=== PATIENT | female | born 1990 | race Caucasian/White ===

== ENCOUNTER 2024-01-01 03:48 | Inpatient (IN) ==
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
[2024-01-01] MEDS ORDERED: MoRPHine SULFATE PF 1 MG/ML 10 ML AMP/VIAL ONE (04:26)
[2024-01-01] MEDS ORDERED: OXYTOCIN 10 UNITS/ML VIAL ONE (04:26)
[2024-01-01] MEDS ORDERED: KETOROLAC 30 MG/ML VIAL ONE (04:26)
[2024-01-01] MEDS ORDERED: ONDANSETRON INJ 2 MG/ML 2 ML VIAL ONE (04:26)
[2024-01-01] MEDS ORDERED: fentaNYL citrate PF 100 MCG/2 ML VIAL ONE (04:27)
[2024-01-01] MEDS: LACTATED RINGER'S 1,000 ML IV SCH ×3 (04:30→08:48)
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
[2024-01-01] MEDS: CITRIC ACID/SODIUM CITRATE 15 ML UDC PO STA (04:45)
[2024-01-01 04:57] LABS: Basophils # (auto) 0.04 K/uL (0.00-0.20); Basophils % (auto) 0.4 %; Eosinophils # (auto) 0.05 K/uL (0.00-0.50); Eosinophils % (auto) 0.5 %; Hemoglobin 10.4 g/dl (12.0-16.0); Immature Granulocytes # (auto) 0.07 K/uL (0.01-0.20); Immature Granulocytes % (auto) 0.7 %; Lymphocytes # (auto) 1.84 K/uL (1.20-3.40); Lymphocytes % (auto) 17.9 %; Mean Corpuscular Hemoglobin 24.2 pg (25.0-34.0); Mean Corpuscular Hgb Conc 31.5 g/dL (32.0-36.0); Mean Corpuscular Volume 76.9 fL (80.0-100.0); Mean Platelet Volume 10.8 fL (9.4-12.4); Monocytes # (auto) 0.75 K/uL (0.11-0.59); Monocytes % (auto) 7.3 %; Neutrophils # (auto) 7.55 K/uL (1.40-6.50); Neutrophils % (auto) 73.2 %; Platelet Count 194 K/uL (130-400); RDW Coefficient of Variation 15.7 % (11.5-14.5); RDW Standard Deviation 43.3 fL (36.4-46.3); Red Blood Count 4.29 M/uL (4.20-5.40)
[2024-01-01 05:10] LABS: Alanine Aminotransferase 8 U/L (7-52); Albumin Globulin Ratio 1.3 (0.9-2); Albumin Level 3.6 gm/dl (3.4-5.0); Alkaline Phosphatase 121 U/L (34-104); Anion Gap 7 (3-11); Aspartate Aminotransferase 12 U/L (13-39); BUN Creatinine Ratio 10.3 (10-20); Bilirubin,Total 0.3 mg/dl (0.2-1.0); Blood Urea Nitrogen 6 mg/dl (6-23); Calcium 8.8 mg/dl (8.6-10.3); Carbon Dioxide 24 mmol/L (21-32); Chloride 104 mmol/L (98-107); Est GFR (African American) 141.4 ml/min; Globulin 2.7 gm/dl (2.5-4.0); Glucose 88 mg/dl (70-99(Fasting)); Sodium 135 mmol/L (136-145); Total Protein 6.3 gm/dl (6.0-8.3)
[2024-01-01 05:24] LABS: Amphetamines+Metham, Urine Neg (Neg); Barbiturates, Urine Neg (Neg); Benzodiazepine, Urine Neg (Neg); Cocaine, Urine Neg (Neg); MDMA (Ecstacy), Urine Neg (Neg); Marijuana, Urine Pos (Neg); Methadone, Urine Neg (Neg); Opiate, Urine Neg (Neg); Phencyclidine, Urine Neg (Neg)
[2024-01-01] MEDS: ceFAZolin 2000MG 2,000 MG/15 ML SYR IV STA (05:28)
[2024-01-01] MEDS: AZITHROMYCIN 500 MG in DEXTROSE 5% 250 ML IV STA (05:30)
[2024-01-01] MEDS ORDERED: MoRPHine SULFATE PF 1 MG/ML 10 ML AMP/VIAL INT SPINAL ONE (06:00)
[2024-01-01] MEDS ORDERED: NALOXONE HCL 0.4 MG/1 ML VIAL/CARP IV PRN (06:00)
[2024-01-01] MEDS ORDERED: SODIUM CHLORIDE 0.9% 1,000 ML IV SCH (06:00)
[2024-01-01] MEDS ORDERED: NALBUPHINE HCL 5 MG in SYRINGE 0 ML IV PRN (06:00)
[2024-01-01] MEDS ORDERED: ONDANSETRON INJ 2 MG/ML 2 ML VIAL IV PRN (06:00)
[2024-01-01] MEDS ORDERED: ePHEDrine sulfate 50 MG/ML AMP IV PRN (06:00)
[2024-01-01] MEDS ORDERED: NALOXONE HCL 1 MG in SODIUM CHLORIDE 0.9% 1,000 ML IV PRN (06:00)
[2024-01-01] MEDS ORDERED: HYDROmorphone INJ 0.5 MG/0.5 ML SYR IV PRN (06:00)
[2024-01-01] MEDS ORDERED: LACTATED RINGER'S 500 ML IV PRN (06:00)
[2024-01-01] MEDS ORDERED: NO NARCOTICS OR SEDATIVES SCH (06:00)
[2024-01-01] MEDS ORDERED: DC INTRASPINAL MORPHINE SCH (06:00)
[2024-01-01] MEDS ORDERED: NALOXONE HCL 0.08 MG in SYRINGE 1.8 ML IV PRN (06:00)
[2024-01-01] MEDS ORDERED: diphenhydrAMINE 50 MG/ML VIAL IV PRN ×2 (06:00→06:53)
[2024-01-01] MEDS ORDERED: BENZOCAINE 20% SPRY 85 APPLN/85 GM CAN EXT PRN (06:53)
[2024-01-01] MEDS ORDERED: KETOROLAC 30 MG/ML VIAL IV PRN (06:53)
[2024-01-01] MEDS ORDERED: MAGNESIUM HYDROXIDE SUSP 30 ML UDC PO PRN (06:53)
[2024-01-01] MEDS ORDERED: diphenhydrAMINE Capsule 25 MG CAP PO PRN (06:53)
[2024-01-01] MEDS ORDERED: SENNA 8.6 MG TAB PO PRN (06:53)
[2024-01-01] MEDS ORDERED: HYDROCORTISONE ACETATE 25 MG SUPP PR PRN (06:53)
[2024-01-01] MEDS ORDERED: MEPERIDINE HCL 50 MG/ML CARP IV PRN (06:53)
--- NOTE | 2024-01-01 07:02 | Operative Report ---
Post Operative Report Pre & Post Diagnosis Operation Date: 01/01/24 04:45 Pre-Op Diagnosis: Footling breech presentation. Spontaneous rupture of membranes, in early labor, h/o prior C Section. Post-Op Diagnosis: Footling breech presentation. Spontaneous rupture of membranes, in early labor, h/o prior C Section . I identified the patient and participated in the time-out.: Yes Procedure Operation Date: 01/01/24 04:45 Actual Procedures p Repeat low-transverse Section in for live female child at 0558. - Al Ward MD Surgeon Al Ward MD All Around Presser Nichelle Dunaway RN Estimated Blood Loss 500 Findings Consistent with Post-Op Diagnosis Baby was a viable female delivered at 0 5:58 AM in footling breech presentation, Apgars 8/8, weight is 2920 g. Maternal findings, lower uterine segment was thin but intact, there were some adhesions between the omentum and the fundus of the uterus, normal fallopian tubes and ovaries. Specimens Placenta Drains Spaulding catheter drained 100 mL of clear urine Anesthesia Type Spinal Complications none Indications Patient is a 33-year-old -0-1-2 at 39 weeks and 1 day gestation presenting with spontaneous rupture of membranes, in early labor, footling breech presentation, history of prior . Description of Procedure Patient was taken to operating room where a spinal anesthesia was given without difficulty. She was placed in dorsal supine position with a leftward tilt. She was prepared and draped in usual sterile fashion. A financial skin incision was made and carried through to the underlying layer of fascia with the Bovie. Fascia was incised in the midline and incision was extended laterally with the help of Helton scissors. Then the upper aspect of the fascial incision was grasped with 2 Ana Maria clamps elevated the underlying rectus muscles were dissected off sharply with Helton scissors. Same thing was done on the lower incision. Then the muscles were in the midline, peritoneum was identified grasped with 2 pickups and entered sharply with Metzenbaum scissors. Peritoneal incision was extended superior and inferiorly with good visualization of the bladder. The bladder blade was inserted. Vesicouterine peritoneum was identified, grasped with pickups and entered sharply with Metzenbaum scissors, bladder flap was created digitally and bladder blade was reinserted. Uterus was incised in transverse fashion, incision was extended laterally with our appendage scissors, membranes were ruptured and clear fluid was obtained. Baby's buttocks with negative fluid were delivered down difficulty, followed by legs and arms in flexion position and then head without faculty. Mouth and nose were suctioned there was dried on the field he was vigorously crying and moving. The cord was clamped times and cut at 1 minute delay and then the was handed off to the pediatric team. Then the placenta was delivered manually as intact and complete. We were unable to externalize the uterus due to effusions of omentum over the uterine fundus and superior serosa. Uterus was kept inside of the pelvis. It was cleared of all clots and debris. Uterine incision was repaired with 0 Vicryl in a running locked fashion, second umbricating layer was placed with the same suture in running locked fashion. Excellent hemostasis achieved. Both fallopian tubes and ovaries were checked to be normal. The pelvis was irrigated with warm normal saline and suctioned. Incision was checked of anesthetic again. parietal peritoneum was reapproximated with 3-0 Vicryl in a running fashion and the muscles were reapproximated in the same suture in a running fashion. All of the fascia and rectus muscles were hemostatic. Rectus fascia was reappro ximated with 0 Vicryl starting from both corners meeting in the midline. Subcuticular fat tissue was brought together with 2-0 Vicryl in a running fashion, skin was closed with 4-0 Monocryl in a subcuticular cuticular fashion. The mom and baby tolerated procedure well. Sponge needle instrument count was correct x3. No complications happened, I was present during whole procedure. She was given 2 g of cefazolin and 500 mg of azithromycin before surgery. My commissary assistant was needed for retraction, hemostasis and aid during delivery of I attest to the content of the Intraoperative Record and any orders documented therein. Any exceptions are noted below.
--- NOTE | 2024-01-01 07:08 | Anesthesiology Progress Note ---
Date of Service January 01, 2024 Anesthesia Post Procedure Vital Signs Vital Signs: Temp Pulse Resp BP Pulse Ox 01/01/24 07:05 72 104/77 100 01/01/24 05:04 37.0 C 18 01/01/24 04:07 77 132/89 Transfer of Care Handoff Completed per policy Notes Mental Status: alert / awake / arousable Patient Amnestic to Procedure: Yes Nausea / Vomiting: adequately controlled Pain: adequately controlled Airway Patency, RR, SpO2: stable & adequate BP & HR: stable & adequate Hydration State: stable & adequate Neuraxial Anesthesia: was administered and sensory block is resolving Anesthetic Complications: no major complications apparent and Pt Satisfied with anesthetic care
[2024-01-01] MEDS: MEASLES, MUMPS & RUBELLA VIRUS VACCINE (MMR) VIAL SQ ONE (08:48)
[2024-01-01] MEDS: DIPHTHER/TETAN/PERTUS Vaccine (Tdap, Adol/Adult) 0.5mL IM ONE (08:48)
[2024-01-01] MEDS: ONDANSETRON INJ 2 MG/ML 2 ML VIAL IV PRN (08:51)
[2024-01-01] MEDS: OXYTOCIN 20 UNITS/LR 1,002 ML IV SCH (08:51)
[2024-01-01] MEDS: DOCUSATE SODIUM 100 MG CAP PO SCH (09:25)
[2024-01-01] MEDS: ESCITALOPRAM OXALATE 10 MG TAB PO SCH ×2 (09:26→19:35)
[2024-01-01] MEDS: FERROUS SULFATE 325 MG TAB PO SCH (09:26)
[2024-01-01] MEDS: PRENATAL VITAMIN 1 TAB PO SCH (09:26)
[2024-01-01] MEDS: SIMETHICONE 80 MG CHEW PO SCH (09:27)
[2024-01-01] MEDS ORDERED: Nursing to Pharmacy Communication SCH (09:30)
[2024-01-01] MEDS: PROMETHAZINE HCL 25 MG in SODIUM CHLORIDE 0.9% 50 ML IV PRN (09:39)
--- OUTSIDE RECORDS SUMMARY | 2024-01-01 13:33 | External Medical Summary | Summary of Care ---
Author Name Unknown Organization [facility] Address [address] [address] Phone [phone] Care Team Providers Care Sleeve Setter Name Role Phone Unavailable Primary Care Provider Unavailabl e Reason for Visit * Reason Comments Return Visit Encounter Details Date Type Department Care Team (Late st Contact Info) Description 12/22/2023 8:00 AM EST Office Visit Gynecology/Obstetric s [facility] [address] [place] [address] Aggie Alvarenga CRNP [address] [place] [address] History of section*; Supervision of other normal , antepartum; Rh negative status during in third trimester; Bipolar disease during in third trimester ([facility]) Allergies No known active allergiesdocumented as of this encounter (statuses as of 12/22/2023) Medications Medication Sig Dispensed Refills Start Date End Date Status Complete Oral Capsule Therapy Pack Take by mouth. 0 Active Ventolin HFA 108 (90 Base) MCG/ACT Inhalation Aerosol SolutionIndications:W heezing,Chronic cough Inhale 2 Puffs by mouth every 4 hours as needed for Wheezing. 8 g 5 09/16/2023 Active Ondansetron HCl 4 MG Oral Tablet (Zofran) Take 1 Tablet by mouth every 8 hours as needed for Nausea. 20 Tablet 1 09/24/2023 Active Iron-Vitamin C 65-125 MG Oral Tablet (Vitron C) Take 1 Tablet by mouth in the morning. 100 Tablet 1 10/20/2023 Active Lurasidone HCl 40 MG Oral Tablet (Latuda) Take 1 Tablet by mouth every night at bedtime. 30 Tablet 2 11/18/2023 Active Escitalopram Oxalate 10 MG Oral Tablet (Lexapro) Take 1 Tablet by mouth in the morning. 90 Tablet 1 11/19/2023 Active documented as of this encounter (statuses as of 12/22/2023) Active Problems Problem Noted Date Diagnosed Date Malpresentation of fetus 12/21/2023 Bipolar disease during 09/18/2023 Overview: Jeyson Jurado Supervision of other normal , antepartu m 09/02/2023 Overview: Transferring care at 21w6d. Records are in chart Rh negative status during 09/02/2023 Overview: Rhogam candidate Electronic cigarette use 09/30/2021 Hyperprolactinemia 04/09/2021 Medical marijuana use 11/20/2020 Borderline personality disorder 11/19/2020 PTSD (post-traumatic stress disorder) 11/19/2020 Bipolar disorder, in full re mission, most recent episode depressed 11/19/2020 History of section 12/23/2018 Trivial aortic regurgitation 09/26/2011 Estimated Date of Delivery Comme nts Yes 01/07/2024 Based on Ultraso und documented as of this encounter (statuses as of 12/22/2023) Resolved Problems Problem Noted Date Diagnosed Date Resolved Date Presence of intrauterine con traceptive device (IUD) 06/24/2017 11/19/2020 documented as of this encounter (statuses as of 12/22/2023) Immunizations Name Administration Dates Next Due DTaP Dipth/Tet/Acell Pertussis (Infanrix), Peds 02/23/1997,02/07/1993,05/02/1992,02/28,1991 HIB PRP-T, 4 dose (ActHib) 02/07/1993,,02/29/1992,12/28 Hepatitis B, 0-19 yrs 09/07/1997,05/04/1997,04/1 MMR - Measles/Mumps/Rubella Vaccine 02/23/1997,0 02/07/1993 Meningococcal Conjugate Vacc ine (Menactra/Menveo) 07/15/2011 OPV - Polio Virus Vaccine (Oral) 997,02/07/1993,02/29/1992,12/28 PPD 07/15/2011 Seasonal Influenza, Quadriva lent, No Preserve, IM 08/25/2016 Seasonal Influenza, Split, I IV3, With Preserve, Inj 11/26/2017,08/23/2014 TB Sophy Test 02/07/1993 TDAP (age 10 and older)(Boostrix) 10/19/2023 TDAP (age 11 and older)(Adacel) 07/15/2011 documented as of this encounter Social History Tobacco Use Types Packs/Day Years Used Date Smoking Tobacco: Former Smokeless Tobacco: Never Comments:quit 5 mos ago as o f 07/30/22 Alcohol Use Standard Drinks/Week Comments Not Currently 0 (1 standard drink = 0.6 oz pur e alcohol) PHQ-2 Answer Date Recorded PHQ Adult Total Score 10 11/20/2020 Hunger Vital Sign Answer Date Recorded Within the past 12 months, y ou worried that your food would run out before you got the money to buy more. Patient refused Within the past 12 months, t he food you bought just didn't last and you didn't have money to get more. Patient refused [place] Depression Scale Answer Date Recorded [place] Depression Scale Total 12 12/02/2023 The thought of harming myself has occurred to me . Never 12/02/2023 Estimated Date of Delivery Comme nts Yes 01/07/2024 Based on Ultraso und Sex and Gender Information Value Date Recorded Sex Assigned at Female 03/16/2023 9:02 PM EDT Gender Identity Female 03/16/2023 9:02 PM EDT Sexual Orientation Straight 03/16/2023 9: 02 PM EDT Job Start Date Occupation Industry Not on file Not on file Not on file documented as of this encounter Last Filed Vital Signs Vital Sign Reading Time Taken Comments Blood Pressure 118/86 12/22/2023 8:07 AM EST Pulse - - Temperature - - Respiratory Rate - - Oxygen Saturation - - Inhaled Oxygen Concentration - - Weight 81.2 kg (179 lb) 12/22/2023 8:07 AM EST Height 165.1 cm (5' 5") 12/22/2023 8:07 AM EST Body Mass Index 29.79 12/22/2023 8:07 AM EST documented in this encounter Progress Notes * Aggie Alvarenga CRNP - 12/22/2023 8:20 AM EST 37w5d Failed ECV at [facility] yesterday. Feeling sore today, having some irregular contractions. Baby is moving well. Denies bleeding or LOF. Agreeable to schedule c/s, Amalia to call pt with appt date for preop as well as c/s date. EMMA Rothman documented in this encounter Plan of Treatment Upcoming Encounters Date Type Department Care Team (Late st Contact Info) Description 12/28/2023 8:30 AM EST Office Visit Gynecology/Obstetrics [facility] [address] [place] [address] Federica Delgadillo CRNP [address] [place] [address] 01/05/2024 8:00 AM EST Office Visit Gynecology/Obstetrics [facility] [address] [place] [address] Aggie Alvarenga CRNP [address] [place] [address] 01/18/2024 8:30 AM EST Telemedicine Psychiatry, [place] [address], [place] [id number] Porsche Markham CRNP [address] [place] [address] Health Maintenance Due Date Last Done Comments COVID-19 Vaccine (#1) 04/27/1992 Depression, Most Recent Score >= 10 (will fire each visit until score < 10) 11/21/2020 11/20/2020 HPV/Co-Test 2021 Influenza Vaccine (FLU shot) (#1) 2023 11/26/2017, 08/25/2016, 08/23/2014 Cervical Cancer Screening 09/16/2025 Pap Smear 09/16/2025 09/16/2022, 06/24/2017 DTaP,Tdap,and Td Vaccines (8 - Td or Tdap) 10/19/2033 10/19/2023, 07/15/2011, 02/23/1997, Additional history exists MENINGOCOCCAL (MENACTRA/MENVEO) Aged Out 07/15/2011 No longer eligible based on patient's age to complete this topic GARDASIL-HPV IMMUNIZATION SERIES Aged Out No longer eligible based on patient's age to complete this topic Pneumococcal Vaccine: Pediatrics (0 to 5 Years) and At-Risk Patients (6 to 64 Years) Aged Out No longer eligible based on patient's age to complete this topic documented as of this encounter Medical Devices Not on filedocumented as of this encounter Visit Diagnoses Diagnosis History of section- Primary Other postprocedural status Supervision of other normal , antepartum Rh negative status during in third trimester Bipolar disease during in third trimester ([facility]) documented in this encounter Advance Directives Latest Code Status on File Code Status Date Activated Date Inactivated Comments Full Code 12/21/2023 7:55 AM 12/21/2023 8:58 PM This or kelly reflects the patients wishes and were consensually agreed upon. Question Answer Comments Discussion of Advance Directives occurred with: Not Discussed due to patient's condition
--- OUTSIDE RECORDS SUMMARY | 2024-01-01 13:33 | External Medical Summary | Summary of Care ---
Author Name Unknown Organization [facility] Address [address] [address] Phone [phone] Care Team Providers Care Cable Layer Name Role Phone Unavailable Primary Care Provider Unavailabl e Reason for Visit * Reason Comments Return Visit Encounter Details Date Type Department Care Team (Late st Contact Info) Description 12/29/2023 3:15 PM EST Office Visit Gynecology/Obstetric s [facility] [address] [place] [address] Mike Gee MD [address] [place] [address] History of section*; Supervision of other normal , antepartum; Rh negative status during in third trimester; Bipolar disease during in third trimester ([facility]) Allergies No known active allergiesdocumented as of this encounter (statuses as of 12/29/2023) Medications Medication Sig Dispensed Refills Start Date [...] as of this encounter (statuses as of 12/29/2023) Active Problems Problem Noted Date Diagnosed Date [...] as of this encounter (statuses as of 12/29/2023) Resolved Problems Problem Noted Date Diagnosed Date Resolved Date Presence of intrauterine con traceptive device (IUD) 06/24/2017 11/19/2020 documented as of this encounter (statuses as of 12/29/2023) Immunizations Name Administration Dates Next Due DTaP Dipth/Tet/Acell Pertussis (Infanrix), Peds 02/23/1997,02/07/1993,05/02/1992,02/28,1991 HIB PRP-T, 4 dose (ActHib) 02/07/1993,,02/29/1992,12/28 Hepatitis B, 0-19 yrs 09/07/1997,05/04/1997,04/ MMR - Measles/Mumps/Rubella Vaccine 02/23/1997,0 02/07/1993 Meningococcal [...] have money to get more. Patient refused [place] Depression Scale Answer Date Recorded [place] Depression Scale Total 12 12/02/2023 The thought [...] Sign Reading Time Taken Comments Blood Pressure 120/74 12/29/2023 3:01 PM EST Pulse - - Temperature - - Respiratory Rate - - Oxygen Saturation - - Inhaled Oxygen Concentration - - Weight 81.6 kg (180 lb) 12/29/2023 3:01 PM EST Height 165.1 cm (5' 5") 12/29/2023 3:01 PM EST Body Mass Index 29.95 12/29/2023 3:01 PM EST documented in this encounter Progress Notes * Mike Gee MD - 12/29/2023 3:06 PM EST Pt doing well No complaints RTC 1 week * Yari Rob LPN - 12/29/2023 3:01 PM EST 38w5d documented in this encounter Plan of Treatment Upcoming Encounters Date Type Department Care Team (Late st Contact Info) Description 01/05/2024 8:00 AM EST Office Visit [facility]necology[facility]st[facility] [address] [facility] [address] Aggie Alvarenga CRNP [address] [place] [address] 01/13/2024 1:30 PM EST Office Visit Gynecology/Obstetrics [facility] [address] [facility] [place] [address] Aggie Alvarenga CRNP [address] [place] [address] 01/18/2024 8:30 AM EST Telemedicine Psychiatry, [place] [address], [place] [phone] Porsche Markham CRNP [address] [place] [address] Health Maintenance Due Date Last [...] trimester Bipolar disease during in third trimester ([facility]) documented in this encounter Advance Directives Latest Code Status on File Code Status Date Activated Date Inactivated Comments Full Code 12/21/2023 7:55 AM 12/21/2023 8:58 PM This or kelly reflects the patients wishes and were consensually agreed upon. Question Answer Comments Discussion of Advance Directives occurred with: Not Discussed due to patient's condition
--- OUTSIDE RECORDS SUMMARY | 2024-01-01 13:34 | External Medical Summary ---
Author Name Unknown Address Unknown Organization K01:[facility] [address] [place] [address] Laboratory Report Ordering Provider Test Date Status YO RONDON 12/21/2023 08:23:31 Final Observation Date Value Abnormality Reference (Units ) Status SYNC LEUKOCYTES IN BLOOD BY AUTOMATED COUNT 12/21/2023 08:23:31 9.17 4.00-10.80 (K/uL) Final Segs 12/21/2023 08:23:31 73.6 40.0-75.0 (%) Final Lymphs % 12/21/2023 08:23:31 17.2 Below low normal 18.0-42.0 (%) Final Monos 12/21/2023 08:23:31 6.8 1.0-11.0 (%) Final Eosinophils 12/21/2023 08:23:31 1.3 0.0-6.0 (%) Final Basos 12/21/2023 08:23:31 0.2 0.0-2.0 (%) Final Immature Granulocyte, Percent 12/21/2023 08:23:31 0.9 0.0-2.0 (%) Final Absolute Segs 12/21/2023 08:23:31 6.75 1.80-7.70 (K/uL) Final Lymphs, absolute 12/21/2023 08:23:31 1.58 1.00-4.80 (K/ul) Final Monos, Abs 12/21/2023 08:23:31 0.62 0.00-1.10 (K/uL) Final Eos, Abs 12/21/2023 08:23:31 0.12 0.00-0.70 (K/uL) Final Basos, Abs 12/21/2023 08:23:31 0.02 0.00-0.20 (K/uL) Final Immature Granulocytes, Number 12/21/2023 08:23:31 0.08 0.00-0.20 (K/uL) Final Performing Location [facility] [address] [facility] [address]
--- OUTSIDE RECORDS SUMMARY | 2024-01-01 13:34 | External Medical Summary | Summary of Care ---
Author Name Unknown Organization [facility] Address [address] [place] [address] Phone [phone] Care Team Providers Care Cashier Host/Hostess Name Role Phone Unavailable Primary Care Provider Unavailabl e Reason for Visit * Auth/Cert Specialty Diagnoses / Procedures Referred By Sobia jon Referred To Contact Diagnoses 37 weeks gestation of 37 weeks gestation of [Z3A.37] Procedures ANTEPARTUM MANIPULATION EXTERNAL CEPHALIC VERSION WITH OR WITHOUT TOCOLYSIS Referral ID Status Reason Start Date Expiration Date Visits Re quested Visits Authorized [id number] Encounter Details Date Type Department Care Team (Latest Contact Info) Description 12/21/2023 7:50 AM EST - 12/21/2023 4:58 PM EST Hospital Encounter [id number] [facility], Women's Lower Level 1st Floor [address] [place] [address] LaniKayla, [address], [place] [id number] Discharge Disposition: Home - Self Care Allergies No known active allergiesdocumented as of [...] dose (ActHib) 02/07/1993,,02/29/1992,12/28 Hepatitis B, 0-19 yrs 09/07/1997,05/04/1997,02/14 MMR - Measles/Mumps/Rubella Vaccine 02/23/1997,0 02/07/1993 Meningococcal [...] have money to get more. Patient refused [place] Depression Scale Answer Date Recorded [place] Depression Scale Total 12 12/02/2023 The thought [...] Sign Reading Time Taken Comments Blood Pressure 115/66 12/21/2023 2:00 PM EST Pulse 78 12/21/2023 2:00 PM EST Temperature 36.2 C (97.2 F) 12/21/2023 2:00 PM ES T Respiratory Rate 16 12/21/2023 2:00 PM EST Oxygen Saturation 97% 12/21/2023 2:00 PM EST Inhaled Oxygen Concentration - - Weight - - Height - - Body Mass Index - - documented in this encounter Discharge Instructions * Discharge Instr - AVS* Homa Bahena, DO - 12/21/2023 4:01 PM EST Discharge Date: 12/21/2023 You may call the department of Obstetrics and Gynecology during business hours for any questions ortest results. [facility] - [phone] After hours, you may call the number above and follow the prompts for more information on the next steps in your care. For acute concerns, you may also call the hospital directly and have the tracer lathe set up operator page the [employer] physician financial sales professional. The information below provides you with the instructions and the list of medications you need to betaking following discharge from the hospital. If you have any questions, please ask before leaving.Please carry this letter with you when you see your doctor in the clinic. If you have questions, you can reach us at the numbers above. Chief Complaint You came to triage for external cephalic version Diagnosis Your primary diagnosis at discharge was unsuccessful ECV at 37w4d gestation Treatment Your treatment included attempted external cephalic version Diet Normal diet Activity As tolerated Return to Work or School You may return to work or school tomorrow. Return Precautions Return to triage if you have painful contractions (greater than 6 to 8 per hour), severe abdominal pain, vaginal bleeding, leaking of fluid, or decreased movement (fewer than 10 movements in a 2 hour period). Special Instructions Vaginal Bleeding Bleeding in the 2nd and 3rd trimesters can be caused by several things. Not all bleeding in is cause for alarm, but in almost all cases, vaginal bleeding in requires evaluation bya provider in the clinic or hospital setting. If you experience any bright red, vaginal bleeding that is like a period, please call [phone] at any time. During day-time work hours, You will be connected directly with a nurse or provider whocan help determine if you need to be evaluated. After hours you can call the number and follow the prompts or press 0 to be connected to the tracer lathe set up operator and ask to speak with the OBGYN physician financial sales professional. Things that may cause bleeding include: Infection of the vagina or cervix - Certain sexually transmitted infections or a bad yeast infection can cause a small amount of spotting. If you suspect you are at risk for one of these conditions, you should call your provider to be tested and treated. Untreated infections can cause pre-term labor or pre-mature rupture of membranes. Pelvic exams, intercourse, or trans-vaginal ultrasound - During , the tissues within the vagina and cervix are very vascular and sensitive. A small amount of spotting after intercourse, cervical exams, or speculum exams is considered normal. You should contact your OB if you experience anybleeding that fills a pad, like a period, as it should be evaluated by a provider. Cervical dilation - As you reach the end of your , your cervix may start to slowly dilate,even in the absence of consistent contractions. This can cause a small amount of blood tinged, mucous discharge, aka bloody show. This is expected and normal, but if this occurs in the presenceof consistent and painful contractions, or if it occurs when you are , you should call your provider to determine if you need to be evaluated. Subchorionic hemorrhage - Some women have a small bleed behind the placenta early in . This is generally monitored without intervention, but it can cause some residual red-brown vaginal discharge. Please speak to your OB if you have a concern regarding your bleeding. Placental abruption - This is when part, or all, of the placenta separates from the uterine wall. This can happen suddenly (acute), or slowly over time (chronic). Warning signs include vaginal bleeding, decreased movement, contractions, and sudden persistent abdominal pain. Risk factors for abruption include: Smoking Severe hypertension Illicit drug use (cocaine, methamphetamines) Direct abdominal trauma A small or chronic abruption can sometimes be managed in the outpatient setting, but an acute abruption requires immediate medical evaluation. If you are having painful abdominal cramping, with or without vaginal bleeding, please contact your doctor to determine if you need to be evaluated. Placenta previa or vasa previa - This is a condition where the placenta or the umbilical cord are overlying the opening to the cervix. This will generally be seen at your anatomy ultrasound (18-22weeks). If diagnosed with a placenta previa or vasa previa, you will be followed closely with ultrasounds to see if the condition resolves. Prior to undergoing speculum exams, digital pelvic exams, or trans-vaginal ultrasound, be sure your provider is aware of your diagnosis. If you have a previa, do not put anything in the vagina including intercourse, douching, tampons, etc. Please call your provider and be seen at the hospital as soon as possible if you experience vaginal bleeding. This information is not intended to replace advice given to you by your health care provider. Make sure you discuss any questions you have with your health care provider. documented in this encounter H&P Notes * Homa Bahena DO - 12/21/2023 9:21 AM EST Obstetrics - History & Physical CHIEF COMPLAINT: here for ECV HISTORY OF PRESENT ILLNESS Winnie Schwab is a 33 year old at 37w4d gestational age by LMP (04/02/23) and consistent with first trimester US (performed 06/01/23 at 8w4d) which suggests Estimated Date of Delivery: 01/07/24. Patient presents today for her ECV. Fetus remains in breech presentation. Patient LOF, VB, contractions, reports good FM. Patient denies any change in vaginal discharge, dysuria, CP/SOB, palpitations, headaches, lightheadedness, cough, nausea, vomiting, diarrhea, constipation, fever, or chills. ROS as above, otherwise negative. RISK FACTORS 1. LTCS x1 2. Rh negative 3. Bipolar disorder, PTSD 4. Breech presentation IMAGING Radiology US (12/14/23 at 36w0d): breech, posterior placenta, JAYME 13.9cm, EFW 58844 g (48%) LAB RESULTS These labs have been resulted on this patient in the last 10 months: HGB (g/dL) Date Value 12/21/2023 9.8 (L) HCT (%) Date Value 12/21/2023 30.8 (L) PLT (K/uL) Date Value 12/21/2023 183 ABO (no units) Date Value 10/19/2023 O Rh (no units) Date Value 10/19/2023 Negative Syphilis Screen Interpretation (no units) Date Value 10/19/2023 Nonreactive 50-g Gestational Glucose, 1 Hour (mg/dL) Date Value 10/19/2023 121 Group B Strep PCR Result (no units) Date Value 12/14/2023 Negative OB HISTORY OB History Para Term AB Living 4 2 2 0 1 2 SAB IAB Ectopic Multiple Live Births 1 0 0 2 # Outcome Date GA Lbr Luis/2nd Weight Sex Delivery Anes PTL Lv 4 Current 3 Term 05/13/15 38w0d 2.807 kg (6 lb 3 oz) F None N MELISSA Complications: Occiput posterior presentation of fetus 2 SAB 07/2014 8w0d AB, SP, 1 1 Term 09/19/13 38w0d 2.778 kg (6 lb 2 oz) F CS-LTranv Gen Y MLEISSA Comments: intolerance to labor Complications: Intolerance, Chorioamnionitis ENGLISH LANGUAGE ARTS TEACHER HISTORY Denies h/o sexually transmitted infections/pelvic inflammatory disease Denies h/o gynecologic surgeries, including biopsies of the cervix Past Medical History: Diagnosis Date Bipolar 1 disorder ([facility]) Bipolar disorder, in full remission, most recent episode depressed ([facility]) 11/19/2020 Borderline personality disorder ([facility]) 11/19/2020 BRCA gene mutation negative in female Heart murmur 2008 resolved History of section 12/23/2018 Medical marijuana use 11/20/2020 PTSD (post-traumatic stress disorder) Past Surgical History: Procedure Laterality Date DELIVERY 09/2013 DENTAL SURGERY PROCEDURE NEC INSERT INTRAUTERINE DEVICE (IUD) 2010 paraguard SPIROMETRY B/A BRONCHODILATOR 06/2012 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 Family History Problem Relation Age of Onset Hypertension Mother Heart Disorder Father high cholesterol Prostate cancer Father Cancer Sister 28 breast (1/2 sister) No Past Hx Sister Other (Other) Sister 1/2 sister--unknown Cancer Grandmother (Maternal) breast Hypertension Grandfather (Maternal) Cancer Grandmother (Paternal) breast Ovarian cancer Grandmother (Paternal) No Known Problems Grandfather (Paternal) Social History Socioeconomic History Marital status: Spouse name: Not on file Number of children: Not on file Years of education: Not on file Highest education level: Not on file Occupational History 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 Tobacco Use Smoking status: Former Smokeless tobacco: Never Tobacco comments: quit 5 mos ago as of 07/30/22 Vaping Use Vaping Use: Every day Substance and Sexual Activity Alcohol use: Not Currently Drug use: Not Currently Types: Marijuana Comment: medical for PTSD Sexual activity: Yes Partners: Male Other Topics Concern Not on file Social History Narrative Not on file Social Determinants of Health Financial Resource Strain: Not on file Food Insecurity: Unknown (09/02/2023) Hunger Vital Sign Worried About Running Out of Food in the Last Year: Patient refused Ran Out of Food in the Last Year: Patient refused Transportation Needs: Not on file Physical Activity: Not on file Stress: Not on file Social Connections: Not on file Intimate Partner Violence: Not on file Housing Stability: Not on file Patient has no known allergies. PHYSICAL EXAM BP 118/73 | Pulse 81 | Temp 36.7 C (98.1 F) (Tympanic) | Resp 18 | LMP 04/02/2023 | SpO2 100% General: NAD, AAO x 3, pleasant Eyes: pupils equal bilaterally, normal sclera Heart: RRR, no murmurs/rubs/gallops, no edema Lungs: CTAB no wheezes/rhonchi/rales. Normal nonlabored breathing. Abd: Soft, gravid, non-tender uterus and abdomen, normoactive bowel sounds MSK: Appropriate ROM, no erythema, or calf tenderness Psych: no acute depression or anxiety NST Review Indication: ECV NST duration 20 minutes FHT: Baseline 130 bpm, moderate variability, Positive accelerations, no decelerations. [place]: rare less than 4 contractions in 1 hr Interpretation: reactive Bedside US: Presenting part: breech ASSESSMENT Winnie Schwab is a 33 year old at 37w4d admitted for an ECV. Plan for ECV in the OR with spinal anesthesia. Will administer terbutaline prior to procedure. Consents were signed for an external cephalic version (ECV). Discussed the likelyhood of success and the factors that limit success including fluid around the baby, position of the placenta and amniotic fluid index. Alternative to ECV being a delivery was explained to patient. Risks and benefits of ECV discussed, including risk of placental abruption or intolerance of the procedurerequiring emergent delivery. Risks of ruptured membranes, cord prolapse, placental abruption, spontaneous labor and pain also discussed. If ruptured membranes occurs and baby is still in thebreech presentation, she understands that a delivery will be performed. Patient understands these risks and elects to proceed. PLAN 1. IUP at 37w4d with breech presentation - Admit: Labor and Delivery - Attending: Dr. Martin - Diagnosis: 37w4d gestation, breech presentation - Condition: stable - Diet: clear liquid diet - Vital signs: per labor protocol - IV access: peripheral IV , IVF at 125 - Activity: ad cristal - monitoring: NST daily - Meds: terbutaline preprocedure - Labs ordered on admission: CBC, Type and Screen - GBS: neg. Antibiotics: not indicated 2. LTCS x1 - Patient desires TOLAC if successful ECV 2. Rh negative - Will administer rhogam today following ECV 3. Bipolar disorder, PTSD - Will counselor dormitory on increased risk of PP mood changes and resources available - Currently on lexapro 10mg, latuda hcl 40 mg Associated attestation - Kayla Martin DO - 12/21/2023 10:31 AM EST OBGYN Attending: I saw and evaluated the patient today. I have reviewed the trainee note and agree. Risks of procedure discussed, including risk of placental abruption, bleeding, heart tracing decelerations and delivery by today. Discussed monitoring post-procedure x 4 hours and planfor home regardless of success, if no indication for delivery today. All current questions answered, consent signed. Dr. Kayla Martin MS, DO, OBGYN, FACOG, FACG [facility] documented in this encounter OR Notes * OR Surgeon - Homa Bahena DO - 12/21/2023 12:02 PM EST OPERATIVE REPORT Name: Winnie Schwab Date: 12/21/2023 Time: 12:02 PM Location: L&D Service: Obstetrics Date of Operation: 12/21/2023 Pre-op Diagnosis: Breech presentation Post-op Diagnosis: Same; unsuccessful ECV Surgeon: Dr. Kayla Martin Assistants: Homa Bahena DO, PGY-1 Bernice Tolentino DO PGY-3 Anesthesia: epidural anesthesia Preoperative medications: 0.25mg SQ terbutaline Procedure: External Cephalic Version Findings: complete breech w spine to maternal right with head to maternal left, at termination of procedure head to maternal right, spine anterior. reactive NST. Specimens: None Estimated Blood Loss: 0.0 cc IV fluids: 1000 cc isolyte Complications: none Drains: none INDICATIONS: Patient is a 33 year old w SIUP at 37w4d, with BMI of 28.12. US 12/14/23 w EFW of 2791 g, JAYME 13.9 cm, and posterior placenta. Description of Operation: The patient was identified. US confirmed that the fetus was in the complete breech presentation with spine to maternal right. Reactive NST. The procedure verified and discussed, including risks/benefits, consents reviewed and signed. 0.25mg Terbutaline administered. The patient was laid in the supine position. Ultrasound gel oil applied to the abdomen. One attempts were made to rotate the baby in the forward direction, which was clockwise, from maternal right toleft. The heart tones were checked by ultrasound in between each attempt and recovered to [id number] in between attempts. Two attempts were made in the opposite direction (backwards roll); counter clockwise, from maternal left to right. The version was unsuccessful. At the end of the procedure head was to maternal right with spine anterior. The patient tolerated the procedure well. She will stay for additional monitoring. Associated attestation - Kayla Martin DO - 12/21/2023 12:23 PM EST OBGYN Attending: A procedure was performed. I was present for entire procedure. I agree with the trainee note. Dr. Kayla Martin MS, DO, OBGYN, FACOG, [facility] documented in this encounter Miscellaneous Notes * Care Plan - Love Mejia RN - 12/21/2023 4:50 PM EST Clinical Goal(s): Pt will have adequate pain control (12/21/23 1545) Possible barriers to meeting goal(s)/advancing plan of care: Lower back pain Stability of the patient: Moderately stable - low risk of patient condition declining or worsening Summary regarding today's goal(s): Met: Pt meets criteria for discharge Recommendations: Follow up with provider if pain continues to worsen * Progress Notes - Non-Billable - Homa Bahena DO - 12/21/2023 4:22 PM EST Obstetrics - Progress Note SUBJECTIVE Winnie Schwab, 33 year old, seen and examined. Patient complaining of lower back pain and contractions q5 minutes. OBJECTIVE BP 115/66 | Pulse 78 | Temp 36.2 C (97.2 F) (Tympanic) | Resp 16 | LMP 04/02/2023 | SpO2 97% FHT: Baseline 145 bpm, moderate variability, Positive accelerations, no decelerations. [place]: irritability -contractions are less than 30 sec SVE at 1615: ft/th/high posterior The patient's nurse was present for the SVE. ASSESSMENT/PLAN 33 year old at 37w4d weeks. S/p unsuccessful ECV and 4 hours of monitoring. Was complaining of lower back pain 6-7/10 and contractions. Patient examined and cervix ft/th/hi. FHT category 1. Abdomen soft and nontender. Recommend she take tylenol and drink plenty of fluids. Likely uterine irritability following attempted ECV. * Progress Notes - Non-Billолег - Lauren March DO - 12/21/2023 1:57 PM EST Winnie Schwab, 33 year old, at 37w4d evaluated after failed ECV attempt. NST REVIEW: FHT: Baseline 145 bpm / Variability / Accelerations / One late Deceleration at 13:44 for 5 minutes and resolved [place]: no contractions noted. However patient felt contraction at time of late deceleration INTERPRETATION: Reactive Will continue to monitor documented in this encounter Plan of Treatment Upcoming Encounters Date Type Department Care Team (Late st Contact Info) Description 12/22/2023 8:00 AM EST Office Visit Gynecology/Obstetrics [facility] [address] [place] [address] Aggie Alvarenga CRNP [address] [place] [address] 12/28/2023 8:30 AM EST Office Visit Gynecology/Obstetrics [facility] [address] [place] [address] Federica Delgadillo CRNP [address] [place] [address] 01/05/2024 8:00 AM EST Office Visit Gynecology/Obstetrics [facility] [address] [place] [address] Aggie Alvarenga CRNP [address] [place] [address] 01/18/2024 8:30 AM EST [facility] [address], [place] [id number] Porsche Markham CRNP [address] [place] [phone] Health Maintenance Due Date Last Done Comments [...] Not on filedocumented as of this encounter Procedures Procedure Name Priority Date/Time Associated Diagnosis Comments EXTRA GREEN TOP WITH GEL Routine 12/21/2023 8:23 AM EST EXTRA GOLD TOP Routine 12/21/2023 8:23 AM EST EXTRA GOLD TOP Routine 12/21/2023 8:23 AM EST EXTRA TUBES Routine 12/21/2023 8:23 AM EST RED BLOOD CELL ANTIBODY IDENTIFICATION STAT 12/21/2023 8:23 AM EST DIFFERENTIAL, AUTOMATED STAT 12/21/19 8:23 AM EST TYPE AND SCREEN STAT 12/21/2023 8:23 AM EST CBC STAT 12/21/2023 8:23 AM EST CBC STAT 12/21/2023 8:23 AM EST SARS-COV-2 (COVID-19), NAAT STAT 12/21/2023 8:15 AM EST documented in this encounter Results * RED BLOOD CELL ANTIBODY IDENTIFICATION (12/21/2023 8:23 AM EST) Red Blood Cell Antibody Identification Passive D Antibody 12/21/2023 11:04 AM EST LABORATORY [facility] BLOOD BANK Blood Venous blood specimen / Unknown Venipuncture / Unknown 12/21/2023 8:23 AM EST 12/21/2023 8:33 AM EST Lauren Joaquim DO LAB BLOOD BANK TEST ORDERABLES Performing Organization Address City/[facility] Co de Phone Number LABORATORY [facility] BLOOD BANK [address] [place] [address] * EXTRA GREEN TOP WITH GEL (12/21/2023 8:23 AM EST) Blood Venous blood specimen / Unknown 12/21/2023 8:23 AM EST 12/21/2023 8:35 AM EST Kayla Garibay DO LAB BLOOD ORDERAB LES Performing Organization Address City/[facility] Co de Phone Number LABORATORY [facility] [address] [place] [address] * EXTRA GOLD TOP (12/21/2023 8:23 AM EST) Blood Venous blood specimen / Unknown 12/21/2023 8:23 AM EST 12/21/2023 8:35 AM EST Kayla Garibay DO LAB BLOOD ORDERAB LES Performing Organization Address [facility] de Phone Number LABORATORY [facility] [address] [place] [address] * EXTRA GOLD TOP (12/21/2023 8:23 AM EST) Blood Venous blood specimen / Unknown 12/21/2023 8:23 AM EST 12/21/2023 8:35 AM EST Kayla Garibay DO LAB BLOOD ORDERAB LES Performing Organization Address City/[facility] Co de Phone Number LABORATORY [facility] [address] [place] [address] * (ABNORMAL) DIFFERENTIAL, AUTOMATED (12/21/2023 8:23 AM EST) WBC 9.17 4.00 - 10.80 K/uL 12/21/2023 8:46 AM EST LABORATORY [facility] Neutrophils % 73.6 40.0 - 75.0 % 12/21/2023 8:46 AM EST [facility] Lymphocytes % 17.2(L) 18.0 - 42.0 % 12/21/2023 8:46 AM EST [facility] Monocytes % 6.8 1.0 - 11.0 % 12/21/2023 8:46 AM EST [facility] Eosinophils % 1.3 0.0 - 6.0 % 12/21/2023 8:46 AM EST [facility] Basophils % 0.2 0.0 - 2.0 % 12/21/2023 8:46 AM EST [facility] Immature Granulocytes % 0.9 0.0 - 2.0 % 12/21/2023 8:46 AM EST [facility] Absolute Neutrophils 6.75 1.80 - 7.70 K/uL 12/21/2023 8:46 AM EST [facility] Absolute Lymphocytes 1.58 1.00 - 4.80 K/ul 12/21/2023 8:46 AM EST [facility] Absolute Monocytes 0.62 0.00 - 1.10 K/uL 12/21/2023 8:46 AM EST [facility] Absolute Eosinophils 0.12 0.00 - 0.70 K/uL 12/21/2023 8:46 AM EST [facility] Absolute Basophils 0.02 0.00 - 0.20 K/uL 12/21/2023 8:46 AM EST [facility] Absolute Immature Granulocytes 0.08 0.00 - 0.20 K/uL 12/21/2023 8:46 AM EST [facility] Blood Venous blood specimen / Unknown Venipuncture / Unknown 12/21/2023 8:23 AM EST 12/21/2023 8:33 AM EST Lauren March DO LAB BLOOD ORDERABLES [facility] [address] [place] [address] * (ABNORMAL) CBC (12/21/2023 8:23 AM EST) WBC 9.17 4.00 - 10.80 K/uL 12/21/2023 8:46 AM EST [facility] RBC 3.89 3.85 - 5.15 M/uL 12/21/2023 8:46 AM EST [facility] HGB 9.8(L) 12.0 - 15.3 g/dL 12/21/2023 8:46 AM EST [facility] HCT 30.8(L) 36.0 - 45.2 % 12/21/2023 8:46 AM EST [facility] MCV 79.2 81.5 - 97.5 fL 12/21/2023 8:46 AM EST [facility] MCH 25.2 27.0 - 34.0 pg 12/21/2023 8:46 AM EST [facility] MCHC 31.8 32.0 - 36.0 g/dL 12/21/2023 8:46 AM EST [facility] RDW 15.5 11.5 - 15.5 % 12/21/2023 8:46 AM EST [facility] PLT 183 140 - 400 K/uL 12/21/2023 8:46 AM EST [facility] MPV 11.1 6.6 - 11.1 fL 12/21/2023 8:46 AM EST [facility] nRBCs 0 <=0 /100 WBCs 12/21/2023 8:46 AM EST LABORATORY [facility] Blood Venous blood specimen / Unknown Venipuncture / Unknown 12/21/2023 8:23 AM EST 12/21/2023 8:33 AM EST Lauren March DO LAB BLOOD ORDERABLES LABORATORY [facility] [address] [place] [address] * TYPE AND SCREEN (12/21/2023 8:23 AM EST) ABO O 12/21/2023 10:32 AM EST LABORATORY [facility] BLOOD BANK Rh Negative 12/21/2023 10:32 AM EST LABORATORY [facility] BLOOD BANK Red Blood Cell Antibody Screen Positive 12/21/2023 10:32 AM EST LABORATORY [facility] BLOOD BANK Comment: Antibodies may delay blood availability If RBC use is anticipated, place a prepare order Specimen Expiration Date 12/24/2023 23:59 12/21/2023 10:32 AM EST LABORATORY [facility] BLOOD BANK Blood Venous blood specimen / Unknown Venipuncture / Unknown 12/21/2023 8:23 AM EST 12/21/2023 8:33 AM EST Lauren Munroee DO LAB BLOOD BANK TEST ORDERABLES Performing Organization Address [facility] Co de Phone Number LABORATORY [facility] BLOOD BANK [address] [place] [address] * SARS-COV-2 (COVID-19), NAAT (12/21/2023 8:15 AM EST) SARS-CoV-2 (COVID-19) Result Negative Negative 12/21/2023 9:52 AM EST LABORATORY [facility] Comment: 2019 Novel Coronavirus not detected. This express test was developed and its performance characteristics determined by [facility]. It has not been cleared or approved by the U.S. Food and Drug Administration (FDA). FDA does not require this test to go thru premarket FDA review. This test is used for clinical purposes. It should not be regarded as investigational or for research. This laboratory is certified under the Clinical Laboratory Improvement Amendments (CLIA) as qualified to perform high complexity clinical laboratory testing. This test is a nucleic acid amplification test (NAAT), a reverse transcriptase polymerase chain reaction (RT-PCR) test, or a Centers for Disease Control- acceptable equivalent. The test is performed in a high complexity Clinical Laboratory Improvement Amendments-(CLIA) certified laboratory. The test is acceptable for SARS-CoV-2 diagnosis, surveillance, and travel within the [place] and to most countries. Please check with local testing authorities about requirements before travel. The validation of bronchial specimens, tracheal aspirates, and sputum for this assay was developed and performance characteristics determined by [facility]. The validation of alternate specimen types has not been cleared or approved by the U.S. Food and Drug Administration (FDA). It has been determined that such clearance is not necessary. Upper Respiratory Mid-turbinate nasal swab / Unknown Non-blood Collection / Unknown 12/21/2023 8:15 AM EST 12/21/2023 8:51 AM EST Bernice Tolentino DO LAB MICRO - GENERAL ORDERABLES Performing Organization Address [facility]/ZIP Co de Phone Number LABORATORY [facility] [address] [place] [address] documented in this encounter Visit Diagnoses Diagnosis Malpresentation of fetus Unspecified malposition or malpresentation of fetus, unspecified as to episode of care documented in this encounter Administered Medications Inactive Administered Medications - up to 3 most recent administrations Medication Order MAR Action Action Date Dose Rate Site Acetaminophen (Tylenol) tab 975 mg 975 mg, Oral, ONCE, On Thu12/21/23 at 1700, For 1 dose, Maximum of 4 grams (4000 mg) per day. Given 12/21/2023 4:21 PM EST 975 mg isolyte 1,000 mL bolus infusion Intravenous, Administer entire volume within 60 minutes or less. Plasma-LYTE 148, isolyte-S, and isolyte-S pH 7.4 are considered equivalent - including for MAR barcode scanning., ONCE, 1 dose, On Thu12/21/23 at 0830, Pre-Op New Bag 12/21/2023 8:24 AM EST 1,000 mL 1000 mL/hr isolyte-S pH 7.4 infusion Intravenous, at 125 mL/hr, Plasma-LYTE 148, isolyte-S, and isolyte-S pH 7.4 are considered equivalent - including for MAR barcode scanning., CONTINUOUS, Starting on Thu12/21/23 at 0830, Until Thu12/21/23 at 2057, Pre-Op Restarted 12/21/2023 11:24 AM EST Continue from Pre-Op 12/21/2023 10:56 AM EST 12 5 mL/hr New Bag 12/21/2023 9:04 AM EST 125 mL/hr Terbutaline Sulfate (Brethine) inj 250 mcg 250 mcg (0.25 mg), Subcutaneous, ONCE, On Thu12/21/23 at 1000, For 1 dose Given 12/21/2023 10:52 AM EST 250 mcg Arm Left Upper documented in this encounter Active and Recently Administered Medications Times are shown in EST. Scheduled Medication Order 12/19/2023 12/20/2023 12/21/2023 Acetaminophen (Tylenol) tab 975 mg (COMPLETED) 975 mg, Oral, ONCE, On Thu12/21/23 at 1700, For 1 dose, Maximum of 4 grams (4000 mg) per day. 1621 (Given - Provid er: Love Mejia RN) isolyte 1,000 mL bolus infusion (COMPLETED) Intravenous, Administer entire volume within 60 minutes or less. Plasma-LYTE 148, isolyte-S, and isolyte-S pH 7.4 are considered equivalent - including for MAR barcode scanning., ONCE, 1 dose, On Thu12/21/23 at 0830, Pre-Op 0824 (New Bag - Prov ider: Ramona Gama, RN) oxygen GAS Inhalation, OXYGEN, First dose on Thu12/21/23 at 0830, Until Discontinued, Device/Managed by: Non-titratable Order (Provider), Device for Continuous Oxygen: NRB mask, Flow Rate (LPM): 10 LPM for intrauterine resuscitation, Wean patient off Oxygen when the oxygen saturation is greater than or equal to 93% 0830 (Oxygen Off - P rovider: Ramona Gama, RENUKA)1600 (Due) Terbutaline Sulfate (Brethine) inj 250 mcg (COMPLETED) 250 mcg (0.25 mg), Subcutaneous, ONCE, On Thu12/21/23 at 1000, For 1 dose 1052 (Given - Provid er: Love Mejia RN) Continuous Medication Order 12/19/2023 12/20/2023 12/21/2023 isolyte-S pH 7.4 infusion Intravenous, at 125 mL/hr, Plasma-LYTE 148, isolyte-S, and isolyte-S pH 7.4 are considered equivalent - including for MAR barcode scanning., CONTINUOUS, Starting on Thu12/21/23 at 0830, Until Thu12/21/23 at 2058, Pre-Op 0904 (New Bag - Prov ider: Ramona Gama RN)1056 (Continue from Pre-Op - Provider: Gini Kenyon MD)1123 (Paused - Provider: Gini Kenyon MD - Comment: Switch to gravity)1124 (Restarted - Provider: Gini Kenyon MD)1147 (Anes Intra-Op Fluid - Provider: Gini Kenyon MD) documented in this encounter Advance Directives Latest Code Status on File Code Status Date Activated Date Inactivated Comments Full Code 12/21/2023 7:55 AM 12/21/2023 8:58 PM This or kelly reflects the patients wishes and were consensually agreed upon. Question Answer Comments Discussion of Advance Directives occurred with: Not Discussed due to patient's condition"
--- OUTSIDE RECORDS SUMMARY | 2024-01-01 13:34 | External Medical Summary | Summary of Care ---
Author Name Unknown Organization [facility] Address [address] [facility] [place] [address] Phone [phone] Care Team Providers Care Senior Electrical Design Engineer Name Role Phone Unavailable Primary Care Provider Unavailabl e Reason for Visit * Reason Comments Return Visit Encounter Details Date Type Department Care Team (Late st Contact Info) Description 12/02/2023 7:45 AM EST Office Visit Gynecology/Obstetric s [facility] [address] [place] [address] Erin Bahena PA-C [address] [place] [address] Supervision of other normal , antepartum*; History of section; Rh negative status during in third trimester; Bipolar disease during in third trimester (HCC) Allergies No known active allergiesdocumented as of this encounter (statuses as of 12/02/2023) Medications Medication Sig Dispensed Refills Start Date [...] as of this encounter (statuses as of 12/02/2023) Active Problems Problem Noted Date Diagnosed Date Bipolar disease during 09/18/2023 Overview: Jeyson Jurado [...] as of this encounter (statuses as of 12/02/2023) Resolved Problems Problem Noted Date Diagnosed Date Resolved Date Presence of intrauterine con traceptive device (IUD) 06/24/2017 11/19/2020 documented as of this encounter (statuses as of 12/02/2023) Immunizations Name Administration Dates Next Due DTaP [...] have money to get more. Patient refused [place] Depression Scale Answer Date Recorded [place] Depression Scale Total 12 12/02/2023 The thought [...] Sign Reading Time Taken Comments Blood Pressure 118/72 12/02/2023 7:40 AM EST Pulse - - Temperature - - Respiratory Rate - - Oxygen Saturation - - Inhaled Oxygen Concentration - - Weight 77.2 kg (170 lb 3.2 oz) 12/02/2023 7:40 A M EST Height 165.1 cm (5' 5") 12/02/2023 7:40 AM EST Body Mass Index 28.32 12/02/2023 7:40 AM EST documented in this encounter Progress Notes * Erin Bahena PA-C - 12/02/2023 7:55 AM EST 34w6d Doing well overall. Reviewed [place], she states feels stable. Does not need additional assist beyond current medications. Reviewed GBS with next visit. Report BH contractions. Denies bleeding, leaking. Baby is moving well. RTC in 2 week Erin Bahena PA-C documented in this encounter Nursing Notes * Ilsa Mclaughlin RN - 12/02/2023 7:41 AM EST Patient here for AMINTA visit 34w6d No concerns + FM Labor instructions given documented in this encounter Plan of Treatment Upcoming Encounters Date Type Department Care Team (Late st Contact Info) Description 12/14/2023 8:30 AM EST Imaging Radiology [facility] 2nd [facility] [address] [place] [address] 12/14/2023 9:15 AM EST Office Visit Gynecology/Obstetrics [facility] [address] [place] [address] Erin Bahena PA-C [address] [place] [address] 12/22/2023 8:00 AM EST Office Visit Gynecology/Obstetrics [facility] [address] [place] [address] Aggie Alvarenga CRNP [address] [place] [address] 12/28/2023 8:30 AM EST Office Visit Gynecology/Obstetrics [facility] [address] [place] [address] Federica Delgadillo CRNP [address] [place] [address] 01/05/2024 8:00 AM EST Office Visit Gynecology/Obstetrics [facility] [address] [place] [address] Aggie Alvarenga CRNP [address] [place] [address] 01/18/2024 8:30 AM EST Telemedicine Psychiatry, [place] [address] [place] [address] Porsche Markham CRNP [address] [place] [address] Health Maintenance Due Date Last [...] as of this encounter Visit Diagnoses Diagnosis Supervision of other normal , antepartum- Primary History of section Other postprocedural status Rh negative status during in third trimester Bipolar disease during in third trimester (HCC) documented in this encounter
--- OUTSIDE RECORDS SUMMARY | 2024-01-01 13:34 | External Medical Summary ---
Author Name Unknown Address Unknown Organization K01:LABORATORY [facility] - [facility] [address] Laboratory Report Ordering Provider Test Date Status HORTENCIA BERGMAN 12/14/2023 09:30:15 Final Observation Date Value Abnormality Reference (Units ) Status Streptococcus agalactiae DNA [Presence] in Specimen by BULMARO with probe detection 12/14/2023 09:30:15 Negative Negative Final No Group B Streptococcus det ected by culture-enhanced PCR (amplified probe).
The collection of vaginal/rectal swab specimen combinations (FDA approved specimen type) is optimal for the detection of Group B Streptococcus. Single source collection (vaginal only or rectal only) or alternate specimen sources may lead to false negative results. Performing Location LABORATORY [facility] - [address] [facility] [address]
--- OUTSIDE RECORDS SUMMARY | 2024-01-01 13:34 | External Medical Summary ---
Author Name Unknown Address Unknown Organization K01:LABORATORY [facility] - [address] [facility] [facility] [address] Laboratory Report Ordering Provider Test Date Status RIVAS LOPEZ 12/21/2023 08:15:02 Final SCREENING Observation Date Value Abnormality Reference (Units ) Status SARS Coronavirus 2 12/21/2023 08:15:02 Negative N egative Final 2019 Novel Coronavirus not d etected.

This express test was developed and its performance characteristics determined by [facility]. It has not been cleared or approved [...] (RT-PCR) test, or a Centers for Disease Control-acceptable equivalent. The test is performed in a high complexity Clinical Laboratory Improvement Amendments-(CLIA) certified laboratory. The test is acceptable for SARS-CoV-2 diagnosis, surveillance, and travel within the [place] and to most countries. Please check with local testing authorities about requirements before travel.

The validation of bronchial specimens, tracheal aspirates, and sputum for this assay was developed and performance characteristics determined by [facility]. The validation of alternate specimen types has not been cleared or approved by the U.S. Food and Drug Administration (FDA). It has been determined that such clearance is not necessary. Performing Location LABORATORY [facility] - [address] [facility] [address]
--- OUTSIDE RECORDS SUMMARY | 2024-01-01 13:34 | External Medical Summary ---
Author Name Unknown Address Unknown Organization K01:LABORATORY [facility] - [address] [place] [address] Laboratory Report Ordering Provider Test Date Status YO RONDON 12/21/2023 08:23:31 Final Observation Date Value Abnormality Reference (Units ) Status ABO 12/21/2023 08:23:31 O Final RH 12/21/2023 08:23:31 Negative Final RED BLOOD CELL ANTIBODY SCREEN 12/21/2023 08:23:31 Positive Final Antibodies may delay blood a vailability
If RBC use is anticipated, place a prepare order SPECIMEN EXPIRATION DATE 12/21/2023 08:23:31 12/24/2023 23:5 9 Final Performing Location LABORATORY [facility] - [address] [place] [address]
--- OUTSIDE RECORDS SUMMARY | 2024-01-01 13:34 | External Medical Summary | Summary of Care ---
Author Name Unknown Organization [facility] Address [address] [place] [address] Phone [phone] Care Team Providers Care Rhit Name Role Phone Unavailable Primary Care Provider Unavailabl e Reason for Visit * Reason Onset Date Comments Med Request 11/18/2023 Encounter Details Date Type Department Care Team (Late st Contact Info) Description 11/18/2023 Telephone Psychiatry, [place] [address] [place] [address] Porsche Markham CRNP [address] [place] [address] Med Request Allergies No known active allergiesdocumented as of this encounter (statuses as of 11/19/2023) Medications Medication Sig Dispensed Refills Start Date End Date Status Complete Oral Capsule Therapy Pack Take by mouth. 0 Active Ventolin HFA 108 (90 Base) MCG/ACT Inhalation Aerosol SolutionIndicatio ns:Wheezing,Chron ic cough Inhale 2 Puffs by mouth every [...] the morning. 90 Tablet 1 11/19/2023 Active Escitalopram Oxalate 10 MG Oral Tablet (Lexapro) Take 1 Tablet by mouth in the morning. 30 Tablet 2 11/18/2023 11/19/2023 Discontinued (Refill) documented as of this encounter (statuses as of 11/19/2023) Active Problems Problem Noted Date Diagnosed Date [...] as of this encounter (statuses as of 11/19/2023) Resolved Problems Problem Noted Date Diagnosed Date Resolved Date Presence of intrauterine con traceptive device (IUD) 06/24/2017 11/19/2020 documented as of this encounter (statuses as of 11/19/2023) Immunizations Name Administration Dates Next Due DTaP [...] have money to get more. Patient refused [place] Depression Scale Answer Date Recorded [place] [employer] Depression Scale Total 8 09/02/2023 The thought of harming myself has occurred to me . Never 09/02/2023 Estimated Date of Delivery Comme nts Yes 01/07/2024 Based on Ultraso und Sex and Gender Information Value Date Recorded Sex Assigned at Female 03/16/2023 9:02 PM EDT Gender Identity Female 03/16/2023 9:02 PM EDT Sexual Orientation Straight 03/16/2023 9: 02 PM EDT Job Start Date Occupation Industry Not on file Not on file Not on file documented as of this encounter Miscellaneous Notes * Telephone Encounter - Laura Osuna LPN - 11/18/2023 3:19 PM EST Pharmacy called stating insurance required a 90-day supply for Lexapro. If this is appropriate please resend script. documented in this encounter Plan of Treatment Upcoming Encounters Date Type Department Care Team (Late st Contact Info) Description 12/02/2023 7:45 AM EST Office Visit Gynecology/Obstetrics [facility] [address] [place] [address] Erin Bahena PA-C [address] [place] [address] 12/14/2023 8:30 AM EST [facility] [address] [place] [address] 12/14/2023 9:15 AM EST Office Visit Gynecology/Obstetrics [facility] [address] [place] [address] Erin Bahena PA-C [address] [place] [address] 12/22/2023 8:00 AM EST Office Visit Gynecology/Obstetrics [facility] [address] [place] [address] Aggie Alvarenga CRNP [address] [place] [address] 12/28/2023 8:30 AM EST Office Visit Gynecology/Obstetrics [facility] [address] [place] [address] Federica Delgadillo CRNP [address] [place] [address] 01/05/2024 8:00 AM EST Office Visit Gynecology/Obstetrics [facility] [address] [place] [address] Aggie Alvarenga CRNP [address] [place] [address] 01/18/2024 8:30 AM EST Telemedicine Psychiatry, [address] [place] [address] Porsche Markham, EMMA [address] [place] [address] Health Maintenance Due Date Last [...] as of this encounter Visit Diagnoses Diagnosis VAHE (generalized anxiety disorder)- Primary Generalized anxiety disorder documented in this encounter
--- OUTSIDE RECORDS SUMMARY | 2024-01-01 13:34 | External Medical Summary | Summary of Care ---
Author Name Unknown Organization [facility] Address [address] [place] [address] Phone [phone] Care Team Providers Care Performance Improvement Specialist Name Role Phone Unavailable Primary Care Provider Unavailabl e Reason for Visit * Reason Comments Return Visit Encounter Details Date Type Department Care Team (Late st Contact Info) Description 12/14/2023 9:15 AM EST [facility] [address] [place] [address] Erin Bahena PA-C [address] [place] [address] Supervision of other normal , antepartum*; History of section; Rh negative status during in third trimester; Bipolar disease during in third trimester (HCC) Allergies No known active allergiesdocumented as of this encounter (statuses as of 12/14/2023) Medications Medication Sig Dispensed Refills Start Date [...] as of this encounter (statuses as of 12/14/2023) Active Problems Problem Noted Date Diagnosed Date [...] as of this encounter (statuses as of 12/14/2023) Resolved Problems Problem Noted Date Diagnosed Date Resolved Date Presence of intrauterine con traceptive device (IUD) 06/24/2017 11/19/2020 documented as of this encounter (statuses as of 12/14/2023) Immunizations Name Administration Dates Next Due DTaP [...] have money to get more. Patient refused [place] Depression Scale Answer Date Recorded [place] Depression Scale Total 12 12/02/2023 The thought [...] Sign Reading Time Taken Comments Blood Pressure 118/74 12/14/2023 8:59 AM EST Pulse - - Temperature - - Respiratory Rate - - Oxygen Saturation - - Inhaled Oxygen Concentration - - Weight 76.7 kg (169 lb) 12/14/2023 8:59 AM EST Height 165.1 cm (5' 5") 12/14/2023 8:59 AM EST Body Mass Index 28.12 12/14/2023 8:59 AM EST documented in this encounter Progress Notes * Erin Bahena PA-C - 12/14/2023 9:00 AM EST 36w4d Ultrasound today for growth. Baby breech. Growth 35%ile. Reviewed with patient. Reviewed options ECV vs repeat C/S. Pt wishes to schedule ECV. Understands that it may not be successful. Scheduled for12/21/2023 at [facility], nursing spoke to triage at [facility] and scheduled. Pt given information. +FHT by ultrasound. Due for GBS, collected. Negative in prior pregnancies. Discussed if unsuccessful ECV, return appointment with for discuss of C/S. RTC in 1 week Erin Bahena PA-C * Yari Rob LPN - 12/14/2023 8:59 AM EST 36w4d JAYME today 13.9 Breech Growth 35% documented in this encounter Plan of Treatment Upcoming Encounters Date Type Department Care Team (Latest Contact Info) Description 12/21/2023 8:05 AM EST Hospital Encounter [id number] [facility], Women's Lower Level 1st Floor [address] [place] [address] Stewart Arias MD [address] [place] [address] 12/21/2023 8:05 AM EST - 12/21/2023 8:45 AM EST Surgery OBTR [facility], OB Triage, Women's Lower Level 1st Floor [address] [place] [address] Stewart Arias MD [address] [place] [address] EXTERNAL CEPHALIC VERSION WITH OR WITHOUT TOCOLYSIS 12/22/2023 8:00 AM EST Office Visit Gynecology/Obstetr ics [facility] [address] [place] [address] Aggie Alvarenga CRNP [address] [place] [address] 12/28/2023 8:30 AM EST Office Visit Gynecology/Obstetr [facility] [address] [place] [address] Federica Delgadillo CRNP [address] [place] [address] 01/05/2024 8:00 AM EST Office Visit Gynecology/Obstetr [facility] [address] [place] [address] Aggie Alvarenga CRNP [address] [place] [address] 01/18/2024 8:30 AM EST Telemedicine Psychiatry, [place] [address] [place] [address] Porsche Markham CRNP [address] [place] [phone] Pending Results Name Type Priority Associated Diagnoses Date /Time GROUP B STREP CULTURE/PCR Lab Routine Supervision of other normal , antepartum 12/14/2023 9:30 AM EST Scheduled Orders Name Type Priority Associated Diagnoses Orde r Schedule GROUP B STREP CULTURE/PCR Lab Routine Supervision of other normal , antepartum Expected: 12/14/2023, Expires: 12/14/2024 Scheduled Procedures Name Priority Associated Diagnoses Date/Ti me EXTERNAL CEPHALIC VERSION WITH OR WITHOUT TOCOLYSIS 37 weeks gestation of 12/21/2023 8:05 AM EST Health Maintenance Due Date Last Done Comments [...] Bipolar disease during in third trimester (HCC) 37 weeks gestation of state, incidental documented in this encounter
--- OUTSIDE RECORDS SUMMARY | 2024-01-01 13:34 | External Medical Summary | Summary of Care ---
Author Name Unknown Organization [facility] Address [address] [facility] [place] [address] Phone [phone] Care Team Providers Care Depositing Machine Operator Name Role Phone Unavailable Primary Care Provider Unavailabl e Reason for Visit * Reason Onset Date Comments FYI 12/14/2023 Encounter Details Date Type Department Care Team (Late st Contact Info) Description 12/14/2023 Telephone Family Medicine [address] [address] Bernice Colindres MD [address] [place] [address] [place] [address] FYI Allergies No known active allergiesdocumented as of [...] have money to get more. Patient refused [place] Depression Scale Answer Date Recorded [place] Depression Scale Total 12 12/02/2023 The thought [...] encounter Miscellaneous Notes * Telephone Encounter - Wendi Spears OSA - 12/14/2023 1:20 PM EST Wendi of [employer] calling to say there is a Care Plan available in [facility] regarding patient. This is just a courtesy call [facility] documented in this encounter Plan of Treatment Upcoming Encounters Date Type Department Care Team (Latest Contact Info) Description 12/21/2023 8:05 AM EST Hospital Encounter [id number] [facility], Women's Lower Level 1st Floor [address] [place], [place] [id number] Stewart Arias MD [address] [place], [place] [id number] 12/21/2023 8:05 AM EST - 12/21/2023 8:45 AM EST Surgery OBTR C, OB Triage, Women's Lower Level 1st Floor [address] [place], [place] [id number] Stewart Arias MD [address] [place], [place] [id number] EXTERNAL CEPHALIC VERSION WITH OR WITHOUT TOCOLYSIS 12/22/2023 8:00 AM EST Office Visit Gynecology/Obstetr [facility] [address] [facility] [place] [address] Aggie Alvarenga CRNP [address] [place] [address] 12/28/2023 8:30 AM EST Office Visit Gynecology/Obstetr [facility] [address] [place] [address] Federica Delgadillo CRNP [address] [place] [address] 01/05/2024 8:00 AM EST Office Visit Gynecology/Obstetr [facility] [address] [place] [address] Aggie Alvarenga CRNP [address] [place] [address] 01/18/2024 8:30 AM EST Telemedicine Psychiatry, [place] [address] [place], [place] [id number] Porsche Markham CRNP [address] [place] [address] Scheduled Procedures Name Priority Associated Diagnoses Date/Ti [...]
--- OUTSIDE RECORDS SUMMARY | 2024-01-01 13:34 | External Medical Summary | Summary of Care ---
Author Name Unknown Organization [facility] Address [address] [place] [address] Phone [phone] Care Team Providers Care Casket Assembler Metal Name Role Phone Unavailable Primary Care Provider Unavailabl e Reason for Visit * - Authorized Specialty Diagnoses / Procedures Referred By Sobia jon Referred To Contact Referral ID Status Reason Start Date Expiration Date V isits Requested Visits Authorized [id number] Authorized 07/29/2023 07/27/2024 [id number] Encounter Details Date Type Department Care Team (Late st Contact Info) Description 11/18/2023 8:[address] [facility] Psychiatry, [place] [address], [place] [id number] Porsche Markham CRNP [address] [place] [address] VAHE (generalized anxiety disorder)* Allergies No known active allergiesdocumented as of [...] the morning. 100 Tablet 1 10/20/2023 Active Escitalopram Oxalate 10 MG Oral Tablet (Lexapro) Take 1 Tablet by mouth in the morning. 30 Tablet 2 11/18/2023 Active Lurasidone HCl 40 MG Oral Tablet (Latuda) Take 1 Tablet by mouth every night at bedtime. 30 Tablet 2 11/18/2023 Active Escitalopram Oxalate 10 MG Oral Tablet (Lexapro) Take 1 Tablet by mouth in the morning. 30 Tablet 2 07/03/2023 11/18/2023 Discontinued (Refill) Lurasidone HCl 40 MG Oral Tablet (Latuda) Take 1 Tablet by mouth every night at bedtime. 30 Tablet 2 07/15/2023 11/18/2023 Discontinued (Refill) documented as of this encounter [...] have money to get more. Patient refused [place] Depression Scale Answer Date Recorded [place] Depression Scale Total 8 09/02/2023 The thought [...] on file documented as of this encounter Progress Notes * Porsche Markham CRNP - 11/18/2023 8:38 AM EST OUTPATIENT PSYCHIATRY [place] [facility] [place] [address] Name: Winnie Schwab : 1990 Date and Time Patient was Seen: 11/18/2023 at 8:39 AM After connecting through televTissue Regeneration Systemso, patient was verified with two unique identifiers. Patient (or authorized legal factory representative) was then informed that this was a Telemedicine visit and that the exam was being conducted confidentially over secure lines. My office door was closed. No one else was in the room with me. Patient acknowledged consent and understanding of privacy and security of the Telemedicine visit and gave permission to have a telemedicine presenter stay in the room in order to assist with the history and to conduct the exam as needed. I informed the patient that I have reviewed their record in [facility] and presented the opportunity for them to ask any questions regarding the visit today. The patient agreed to participate. Additional telemed for psych required: Provider reviewed elements of Outpatient Services Description including limits of confidentiality, how to contact the department, risks and benefits of treatment and consent for treatment. Patient isunable to sign acknowledgment receiving form. Signature will be obtained when Covid 19 crisis has passed and in person services resume. For [facility] members, Encounter Form unable to be signed, signature exempt - Telehealth, and will beobtained when Covid 19 crisis has passed and in person services resume. Treatment plan signature page document signatures may be marked "signature exempt - Telehealth" with a provider policy to obtain signatures as soon as possible after the COVID-19 crisis has passed and in person services resume. Start Time: 8:30 am Stop Time: 9:00 am Physical Location of patient: Home CC: Things are going well INTERVAL HISTORY: Patient reports that she is doing well. She is adherent with her medications and denies any side effects or need for medication adjustments. States that she is not having any new depressive or anxious symptoms. Denies any selena or psychosis and no signs evident. Denies SI or HI. Denies any new lifestressors. Describes sleep and appetite as WNL. Discussed risks and benefits of medications and will continue at current dosages. Discussed how to contact APARTMENT LEASING SPECIALIST if needed through My Chart. DX: VAHE PTSD Bipolar 1 MEDS CONTINUE Latuda 40 mg QHS ADD Lexapro 10 mg QD [place]-SUICIDE SEVERITY RATING SCALE Frequent Screener Ask questions that are bold and underlined Since Last Contact (Duong with an X) YES NO Have you actually had thoughts about killing yourself? x If YES, ask the following questions. If NO, go directly to the last question Have you been thinking about how you might do this? Have you had these thoughts and had some intention of acting on them? E.g. I thought about taking an overdose, but I never made a specific plan as to when where or how I would actually do it.and I would never go through with it. Have you started to work out or worked out the details of how to kill yourself? Do you intend to carry out this plan? As opposed to I have the thoughts, but I definitely will not do anything about them. Have you done anything, started to do anything, or prepared to do anything to end your life? Examples: Collected pills, obtained a gun, gave away valuables, wrote a will or suicide note, took out pills but didn't swallow any, held a gun but changed your mind or it was grabbed from your hand,went to the roof but didn't jump; or actually took pills, tried to shoot yourself, cut yourself, tried to hang yourself, etc. x Low Risk Complete or review crisis plan with patient Discuss risk/protective factors and reasons for living Moderate Risk Complete or review crisis plan with patient Discuss risk/protective factors and reasons for living Discuss removal of means High Risk Maintain 1 to 1 monitoring until assessment is completed Evaluate for higher level of care (Inpatient or PHP) Consultation with Emergency Services as appropriate If patient not admitted: Complete or review crisis plan with patient Discuss risk/protective factors and reasons for living Advise removal of means Consider family or collateral contact to promote safety Schedule follow up care consistent with assessment ALLERGIES Review of patient's allergies indicates: No Known Allergies CURRENT MEDICATIONS: Current Outpatient Medications Medication Sig Dispense Refill Escitalopram Oxalate 10 MG Oral Tablet (Lexapro) Take 1 Tablet by mouth in the morning. 30 Tablet 2 Lurasidone HCl 40 MG Oral Tablet (Latuda) Take 1 Tablet by mouth every night at bedtime. 30 Tablet 2 Complete Oral Capsule Therapy Pack Take by mouth. Ventolin HFA 108 (90 Base) MCG/ACT Inhalation Aerosol Solution Inhale 2 Puffs by mouth every 4 hours as needed for Wheezing. 8 g 5 Ondansetron HCl 4 MG Oral Tablet (Zofran) Take 1 Tablet by mouth every 8 hours as needed for Nausea. 20 Tablet 1 Iron-Vitamin C 65-125 MG Oral Tablet (Vitron C) Take 1 Tablet by mouth in the morning. 100 Tablet 1 No current facility-administered medications for this visit. RECENT LABS/IMAGING: No results found for this or any previous visit (from the past 672 hour(s)). VITALS There were no vitals filed for this visit. Wt Readings from Last 3 Encounters: 11/06/23 71.7 kg (158 lb) 10/19/23 71.2 kg (157 lb) 10/01/23 70.3 kg (155 lb) There is no height or weight on file to calculate BMI. CURRENT MEDICATIONS: Current Outpatient Medications Medication Sig Dispense Refill Escitalopram Oxalate 10 MG Oral Tablet (Lexapro) Take 1 Tablet by mouth in the morning. 30 Tablet 2 Lurasidone HCl 40 MG Oral Tablet (Latuda) Take 1 Tablet by mouth every night at bedtime. 30 Tablet 2 Complete Oral Capsule Therapy Pack Take by mouth. Ventolin HFA 108 (90 Base) MCG/ACT Inhalation Aerosol Solution Inhale 2 Puffs by mouth every 4 hours as needed for Wheezing. 8 g 5 Ondansetron HCl 4 MG Oral Tablet (Zofran) Take 1 Tablet by mouth every 8 hours as needed for Nausea. 20 Tablet 1 Iron-Vitamin C 65-125 MG Oral Tablet (Vitron C) Take 1 Tablet by mouth in the morning. 100 Tablet 1 No current facility-administered medications for this visit. FAMILY HISTORY: Family History Problem Relation Age of Onset Hypertension Mother Heart Disorder Father high cholesterol Prostate cancer Father Cancer Sister 28 breast (1/2 sister) No Past Hx Sister Other (Other) Sister 1/2 sister--unknown Cancer Grandmother (Maternal) breast Hypertension Grandfather (Maternal) Cancer Grandmother (Paternal) breast Ovarian cancer Grandmother (Paternal) No Known Problems Grandfather (Paternal) PAST MEDICAL HISTORY: Past Medical History: Diagnosis Date Bipolar 1 disorder (HCC) Bipolar disorder, in full remission, most recent episode depressed (HCC) 11/19/2020 Borderline personality disorder (HCC) 11/19/2020 BRCA gene mutation negative in female Heart murmur 2009 resolved History of section 12/23/2018 Medical marijuana use 11/20/2020 PTSD (post-traumatic stress disorder) SUMMARY OF/CHANGES TO PAST PSYCHIATRIC, MEDICAL, FAMILY, OR SOCIAL HISTORY: See interval history MEDICAL REVIEW OF SYSTEMS: Please see medical notes MENTAL STATUS EVALUATION: Appearance: casually dressed Muscle strength and tone: no abnormal involuntary movements noticeable Gait and Station: not assessed, patient seen via teleconference Behavior: cooperative Speech: normal, rate, tone and volume Mood: happy Affect: type - euthymic; range - full range; lability - no Associations: intact Thought Process: goal directed Abstract Reasoning: intact Thought Content: denies suicidal ideations, homicidal ideations, auditory hallucinations, visual hallucinations, delusions, impulsivity to act out or preoccupation with violence Orientation: alert and oriented to person, place, time and situation Attention span/concentration as evidenced by: ability to sustain attention to examiner - intact Insight: good Judgment: good ASSESSMENT AND PLAN: Treatment options and alternatives reviewed with patient who agrees with the above plan. Information about current medications was provided to the patient including reasons why medications are being used. Patient understood the risks, benefits, side-effects, and potential complications associated with changes in medications being proposed (both medications being started, and medications being discontinued or having dose changed). Patient is making an informed medical decision to follow the recommendations outlined in this note. Directed pt to call with any questions or concerns, worsening symptoms and/or ask for earlier appointment. Greater than 50% of the time was spent counseling or coordinating the care of the patient Risk assessment was performed. This is a patient being treated for chronic mental health conditionsand/or substance use disorder as characterized above; at the time of this visit, there was no indication that this patient was either a risk to self, others, or gravely disabled by symptoms of a mental illness or substance use disorder. At the time of this evaluation, pt did not appear to be an acute risk to self or others, there were enough protective factors in place, and it was deemed safe andappropriate to continue with treatment on an outpatient basis with return to clinic in the timeframe described above. We reviewed previous crisis plan should he/she experience worsening of symptoms before next follow-up appointment, including being aware of what resources to use according to the urgency and severityof symptoms. Winnie Schwab was able to verbalize understanding of the steps necessary to obtain help between appointments should be needed, from requesting a phone call, to requesting an appointment sooner, including reaching clinic after hours, accessing our system, and accessing emergency mental health and medical services, either at a local emergency department or by activating mobile crisis teams andEMS. Time Spent on Visit: 30 minutes Please note 17 minutes of counseling time over and above medication management was spent on Billing code: [id number] and [id number] EMMA Rasmussen Psychiatrist, [facility] 11/18/2023 documented in this encounter Plan of Treatment Upcoming Encounters Date Type Department Care Team (Late st Contact Info) Description 12/02/2023 7:45 AM EST Office Visit Gynecology/Obstetrics [facility] [address] [place] [address] Erin Bahena PA-C [address] [place] [address] 12/14/2023 8:30 AM EST [facility] [address] [place] [address] 12/14/2023 9:15 AM EST Office Visit Gynecology/Obstetrics [facility] [address] [place] [address] Erin Bahena PA-C [address] [place] [address] 12/22/2023 8:00 AM EST Office Visit Gynecology/Obstetrics [facility] [address] [place] [address] Aggie Alvarenga CRNP [address] [place] [address] 12/28/2023 8:30 AM EST Office Visit Gynecology/Obstetrics [facility] [address] [place] [address] Federica Delgadillo CRNP [address] [place] [address] 01/05/2024 8:00 AM EST Office Visit Gynecology/Obst[facility]s [facility] [address] [place] [address] Aggie Alvarenga CRNP [address] [place] [address] 01/18/2024 8:30 AM EST Telemedicine Psychiatry, [place] [address], [place] [id number] Porsche Markham CRNP [address] [place] [id number] Health Maintenance Due Date Last Done Comments [...]
--- OUTSIDE RECORDS SUMMARY | 2024-01-01 13:34 | External Medical Summary ---
Author Name Unknown Address Unknown Organization [id number]:[facility] [place] [facility] [place][note 2] [address] [place] [address] Laboratory Report Ordering Provider Test Date Status YO RONDON 12/21/2023 08:23:31 Final Observation Date Value Abnormality Reference (Units) Status Blood group antibody investigation [Interpretation] in Plasma or RBC 12/21/2023 08:23:31 Findings: Final Blood group antibody investigation [Interpretation] in Plasma or RBC 12/21/2023 08:23:31 Final Blood group antibody investigation [Interpretation] in Plasma or RBC 12/21/2023 08:23:31 Passive anti-D. Final Blood group antibody investigation [Interpretation] in Plasma or RBC 12/21/2023 08:23:31 Final Blood group antibody investigation [Interpretation] in Plasma or RBC 12/21/2023 08:23:31 The patient types as ONEG and is . In the patient's sample from 12/21/23, anti-D is identified, likely due to Rh immune globulin administration during this (10/19/23). Final Blood group antibody investigation [Interpretation] in Plasma or RBC 12/21/2023 08:23:31 Final Blood group antibody investigation [Interpretation] in Plasma or RBC 12/21/2023 08:23:31 If transfusion is necessary, the Blood Bank will issue extended crossmatch-compatibl e RhD-negative red blood cell units to prevent sensitization to the D antigen. Final Blood group antibody investigation [Interpretation] in Plasma or RBC 12/21/2023 08:23:31 Final Performing Location [facility] [place] [address] [place] [address]
--- OUTSIDE RECORDS SUMMARY | 2024-01-01 13:34 | External Medical Summary ---
Author Name Unknown Address Unknown Organization [id number]:[facility] [place] - [address] [place] [address] Laboratory Report Ordering Provider Test Date Status YO RONDON 12/21/2023 08:23:31 Final Observation Date Value Abnormality Reference (Units ) Status WBC, Total 12/21/2023 08:23:31 9.17 4.00-10.80 (K/uL) Final RBC 12/21/2023 08:23:31 3.89 3.85-5.15 (M/uL) Final Hemoglobin 12/21/2023 08:23:31 9.8 Below low normal 12.0-15.3 (g/dL) Final HCT 12/21/2023 08:23:31 30.8 Below low normal 36.0-45.2 (%) Final MCV 12/21/2023 08:23:31 79.2 81.5-97.5 (fL) Final MCH 12/21/2023 08:23:31 25.2 27.0-34.0 (pg) Final MCHC 12/21/2023 08:23:31 31.8 32.0-36.0 (g/dL) Final RDW 12/21/2023 08:23:31 15.5 11.5-15.5 (%) Final Platelets 12/21/2023 08:23:31 183 140-400 (K/uL) Final MPV 12/21/2023 08:23:31 11.1 6.6-11.1 (fL) Final Nucleated erythrocytes/100 leukocytes [Ratio] in Blood by Automated count 12/21/2023 08:23:31 0 <=0 (/100 WBCs) Final Performing Location [facility] [place] - [address] [place] [address]
--- OUTSIDE RECORDS SUMMARY | 2024-01-01 13:34 | External Medical Summary ---
Author Name Unknown Address Unknown Organization [id number]:[facility] [place] [facility] - [address] [place] [address] Laboratory Report Ordering Provider Test Date Status YO RONDON 12/21/2023 08:23:31 Final Observation Date Value Abnormality Reference (Units) Status RED BLOOD CELL ANTIBODY IDENTIFICATION 12/21/2023 08:23:31 Passive D Antibody Final Performing Location [facility] [place] [facility] - [address] [place] [address]
--- OUTSIDE RECORDS SUMMARY | 2024-01-01 13:35 | External Medical Summary | Summary of Care ---
Author Name Unknown Organization [facility] Address [address] [facility] [place] [address] Phone [phone] Care Team Providers Care Geneticist Name Role Phone Unavailable Primary Care Provider Unavailabl e Encounter Details Date Type Department Care Team (Late st Contact Info) Description 11/13/2023 Telephone Gynecology/[facility] [address] [place] [address] Mike Gee MD [email or web address] [place] [address] Allergies No known active allergiesdocumented as of this encounter (statuses as of 11/13/2023) Medications Medication Sig Dispensed Refills Start Date End Date Status Escitalopram Oxalate 10 MG Oral Tablet (Lexapro) Take 1 Tablet by mouth in the morning. 30 Tablet 2 07/03/2023 Active Lurasidone HCl 40 MG Oral Tablet (Latuda) Take 1 Tablet by mouth every night at bedtime. 30 Tablet 2 07/15/2023 Active Complete Oral Capsule Therapy Pack Take by [...] the morning. 100 Tablet 1 10/20/2023 Active documented as of this encounter (statuses as of 11/13/2023) Active Problems Problem Noted Date Diagnosed Date [...] as of this encounter (statuses as of 11/13/2023) Resolved Problems Problem Noted Date Diagnosed Date Resolved Date Presence of intrauterine con traceptive device (IUD) 06/24/2017 11/19/2020 documented as of this encounter (statuses as of 11/13/2023) Immunizations Name Administration Dates Next Due DTaP Dipth/Tet/Acell Pertussis (Infanrix), Peds 02/23/1997,02/07/1993,05/02/1992,02/28,1991 HIB PRP-T, 4 dose (ActHib) 02/07/1993,,02/29/1992,12/28 Hepatitis B, 0-19 yrs 09/07/1997,05/04/1997,02/14 MMR - Measles/Mumps/Rubella Vaccine 02/23/1997,0 02/07/1993 Meningococcal Conjugate Vacc ine (Menactra/Menveo) 07/15/2011 OPV - Polio Virus Vaccine (Oral) 997,02/07/1993,02/29/1992,12/28 PPD 07/15/2011 Seasonal Influenza, Quadriva lent, No Preserve, IM 08/25/2016 Seasonal Influenza, Split, I IV3, With [place]ne, Inj 11/26/2017,08/23/2014 TB Sophy Test 02/07/1993 TDAP [...] have money to get more. Patient refused [place] Depression Scale Answer Date Recorded [place] Depression Scale Total 8 09/02/2023 The thought [...] encounter Miscellaneous Notes * Telephone Encounter - Ilsa Mclaughlin RN - 11/13/2023 1:23 PM EST Patient calling in states that she tested + COVID today. Asking if there is anything specific that she needs to do. Advised that she should continue home care, Tylenol as needed for pains/fever. Use of humidifier, chloraseptic spray, saline spray. Patient advised to let us know if she has any concerns with including DFM, vaginal bleeding/leaking, contractions, severe pain. Patient encouraged to reach out to PCP if COVID symptoms are not improving, Given ER precautions. Patient verbalized understanding. documented in this encounter Plan of Treatment Upcoming Encounters Date Type Department Care Team (Late st Contact Info) Description 11/18/2023 8:30 AM EST Telemedicine Psychiatry, [place] [address] [place] [address] Porsche Markham CRNP [address] [place] [address] 11/18/2023 2:00 PM EST Office Visit Gynecology/Obstetrics [facility] [address] [facility] [place] [address] Aggie Alvarenga CRNP [address] [place] [address] Health Maintenance Due Date Last Done Comments [...]
--- OUTSIDE RECORDS SUMMARY | 2024-01-01 13:35 | External Medical Summary | Summary of Care ---
Author Name Unknown Organization [facility] Address [address] [place] [address] Phone [phone] Care Team Providers Care Records Management Technician Name Role Phone Unavailable Primary Care Provider Unavailabl e Reason for Visit * Reason Comments Return Visit Encounter Details Date Type Department Care Team (Late st Contact Info) Description 11/06/2023 1:30 PM EST Office Visit Gynecology/Obstetric s [facility] [address] [place] [address] Aggie Alvarenga CRNP [address] [place] [address] Decreased movements in third trimester, single or unspecified fetus*; History of section; Supervision of other normal , antepartum; Rh negative, antepartum; Bipolar disease during in third trimester (HCC) Allergies No known active allergiesdocumented as of this encounter (statuses as of 11/06/2023) Medications Medication Sig Dispensed Refills Start Date [...] as of this encounter (statuses as of 11/06/2023) Active Problems Problem Noted Date Diagnosed Date [...] as of this encounter (statuses as of 11/06/2023) Resolved Problems Problem Noted Date Diagnosed Date Resolved Date Presence of intrauterine con traceptive device (IUD) 06/24/2017 11/19/2020 documented as of this encounter (statuses as of 11/06/2023) Immunizations Name Administration Dates Next Due DTaP [...] have money to get more. Patient refused [place] Depression Scale Answer Date Recorded [place] Depression Scale Total 8 09/02/2023 The thought [...] Sign Reading Time Taken Comments Blood Pressure 118/64 11/06/2023 2:29 PM EST Pulse - - Temperature - - Respiratory Rate - - Oxygen Saturation - - Inhaled Oxygen Concentration - - Weight 71.7 kg (158 lb) 11/06/2023 2:29 PM EST Height 165.1 cm (5' 5") 11/06/2023 2:29 PM EST Body Mass Index 26.29 11/06/2023 2:29 PM EST documented in this encounter Progress Notes * Aggie Alvarenga CRNP - 11/06/2023 2:36 PM EST ASSESSMENT assessment with Non-stress Test completed on 11/06/2023 at 31.1weeks gestation for indicationof decreased movement. heart baseline: 150 bpm Variability: Moderate Decelerations: absent Accelerations: present Contractions: None NST start time: 1415 NST stop time: 1443 NST strip reviewed, interpreted, and approved by OB provider, EMMA Rothman . NST strip stored in clinic storage file Pt documented FM 27 times during NST. documented in this encounter Plan of Treatment Upcoming Encounters Date Type Department Care Team (Late st Contact Info) Description 11/18/2023 8:30 AM EST Telemedicine Psychiatry, [place] [address] [place] [address] Porsche Markhma CRNP [address] [place] [address] 11/18/2023 2:00 PM EST Office Visit Gynecology/Obstetrics [facility] [address] [facility] [place] [address] Aggie Alvarenga CRNP [address] [facility] [place] [address] Health Maintenance Due Date Last Done Comments [...] as of this encounter Visit Diagnoses Diagnosis Decreased movements in third trimester, single or unspecified fetus- Primary History of section Other postprocedural status Supervision of other normal , antepartum Rh negative, antepartum Rhesus isoimmunization affecting management of mother, antepartum condition Bipolar disease during in third trimester (HCC) documented in this encounter
--- OUTSIDE RECORDS SUMMARY | 2024-01-01 13:35 | External Medical Summary | Summary of Care ---
Author Name Unknown Organization [facility] Address [address] [facility] [place] [address] Phone [phone] Care Team Providers Care High Density Press Operator Name Role Phone Unavailable Primary Care Provider Unavailabl e Encounter Details Date Type Department Care Team (Late st Contact Info) Description 11/06/2023 Telephone Gynecology/Obstetrics [facility] [address] [place] [address] Aggie Alvarenga CRNP [address] [facility] [place] [address] Allergies No known active allergiesdocumented as of [...] have money to get more. Patient refused [place] Depression Scale Answer Date Recorded [place] Depression Scale Total 8 09/02/2023 The thought [...] Telephone Encounter - Ilsa Mclaughlin RN - 11/06/2023 12:29 PM EST Patient calling with Complaints of DFM Patient states that she has eaten breakfast and lunch. Has been drinking cold water all day to try to improve movements. Denies bleeding/leaking. Patient has tried to drink fluids and lay down on side for the past hour and has felt 1-2 movements but is not her "normal". Patient scheduled in openingfor 1:30 but Advised to come to office now so she can be placed on NST. Patient agreeable. documented in this encounter Plan of Treatment Upcoming Encounters Date Type Department Care Team (Late st Contact Info) Description 11/06/2023 1:30 PM EST Office Visit Gynecology/Obstetrics [facility] [address] [place] [address] Aggie Alvarenga CRNP [address] [place] [address] 11/18/2023 8:30 AM EST Telemedicine Psychiatry, [place] [address] [place], [place] [id number] Porsche Markham CRNP [address] [place] [id number] 11/18/2023 2:00 PM EST Office Visit Gynecology/Obstetrics [facility] [address] [place] [address] Aggie Alvarenga CRNP [address] [place] [address] Health Maintenance Due Date Last Done Comments [...]
--- OUTSIDE RECORDS SUMMARY | 2024-01-01 13:35 | External Medical Summary | Summary of Care ---
Author Name Unknown Organization [facility] Address [address] [place] [address] Phone [phone] Care Team Providers Care Appellate Conferee Name Role Phone Unavailable Primary Care Provider Unavailabl e Reason for Visit * Reason Comments Return Visit Encounter Details Date Type Department Care Team (Late st Contact Info) Description 11/04/2023 7:45 AM EST Office Visit Gynecology/Obstetric s [facility] [address] [place] [address] Erin Bahena PA-C [address] [place] [address] Supervision of other normal , antepartum*; History of section; Rh negative status during in third trimester; Bipolar disease during in third trimester (HCC) Allergies No known active allergiesdocumented as of this encounter (statuses as of 11/04/2023) Medications Medication Sig Dispensed Refills Start Date [...] as of this encounter (statuses as of 11/04/2023) Active Problems Problem Noted Date Diagnosed Date [...] as of this encounter (statuses as of 11/04/2023) Resolved Problems Problem Noted Date Diagnosed Date Resolved Date Presence of intrauterine con traceptive device (IUD) 06/24/2017 11/19/2020 documented as of this encounter (statuses as of 11/04/2023) Immunizations Name Administration Dates Next Due DTaP [...] have money to get more. Patient refused [place] Depression Scale Answer Date Recorded [place] Depression Scale Total 8 09/02/2023 The thought [...] Sign Reading Time Taken Comments Blood Pressure 104/64 11/04/2023 7:43 AM EST Pulse - - Temperature - - Respiratory Rate - - Oxygen Saturation - - Inhaled Oxygen Concentration - - Weight - - Height 165.1 cm (5' 5") 11/04/2023 7:43 AM EST Body Mass Index - - documented in this encounter Progress Notes * Erin Bahena PA-C - 11/04/2023 7:46 AM EST 30w6d First time seeing patient. Planning . Having some headaches, frontal. Taking Tylenol PRN. Feelsshe maybe getting sick, several other sick contacts at work. Push fluids, Tylenol PRN, Magnesium supplement 400 mg daily if needed. Denies bleeding, leaking, contractions. Pos FM. RTC in 2 weeks Erin Bahena PA-C documented in this encounter Nursing Notes * Ilsa Mclaughlin RN - 11/04/2023 7:44 AM EST Patient here for AMINTA 30w6d No bleeding / leaking +FM documented in this encounter Plan of Treatment Upcoming Encounters Date Type Department Care Team (Late st Contact Info) Description 11/18/2023 8:30 AM EST Telemedicine Psychiatry, [place] [address] [place] [address] Porsche Markham CRNP [address] [place] [address] 11/18/2023 2:00 PM EST Office Visit Gynecology/Obstetrics [facility] [address] [place] [address] Aggie Alvarenga CRNP [address] [place] [address] Health Maintenance Due Date Last Done Comments [...]
--- OUTSIDE RECORDS SUMMARY | 2024-01-01 13:35 | External Medical Summary | Summary of Care ---
Author Name Unknown Organization [facility] Address [address] [facility] [place] [address] Phone [phone] Care Team Providers Care Vector Control Specialist Name Role Phone Unavailable Primary Care Provider Unavailabl e Reason for Visit * Reason Comments Return Visit Encounter Details Date Type Department Care Team (Late st Contact Info) Description 11/18/2023 2:00 PM EST Office Visit Gynecology/Obstetric s [facility] [address] [place] [address] Aggie Alvarenga CRNP [address] [place] [address] Supervision of other normal , antepartum*; History of section; Rh negative status during in third trimester; Bipolar disease during in third trimester ([facility]); COVID-19 affecting in third trimester; [place] contractions Allergies No known active allergiesdocumented as of this encounter (statuses as of 11/18/2023) Medications Medication Sig Dispensed Refills Start Date [...] at bedtime. 30 Tablet 2 11/18/2023 Active documented as of this encounter (statuses as of 11/18/2023) Active Problems Problem Noted Date Diagnosed Date Bipolar disease during 09/18/2023 Overview: Jesyon Jurado Supervision of other normal , antepartu [...] as of this encounter (statuses as of 11/18/2023) Resolved Problems Problem Noted Date Diagnosed Date Resolved Date Presence of intrauterine con traceptive device (IUD) 06/24/2017 11/19/2020 documented as of this encounter (statuses as of 11/18/2023) Immunizations Name Administration Dates Next Due DTaP [...] have money to get more. Patient refused [place] Depression Scale Answer Date Recorded [place] Depression Scale Total 8 09/02/2023 The thought [...] Sign Reading Time Taken Comments Blood Pressure 120/64 11/18/2023 1:53 PM EST Pulse - - Temperature - - Respiratory Rate - - Oxygen Saturation - - Inhaled Oxygen Concentration - - Weight 73.5 kg (162 lb) 11/18/2023 1:53 PM EST Height 165.1 cm (5' 5") 11/18/2023 1:53 PM EST Body Mass Index 26.96 11/18/2023 1:53 PM EST documented in this encounter Progress Notes * Aggie Alvarenga CRNP - 11/18/2023 2:10 PM EST 32w6d Diagnosed with COVID 11/13. Feeling better, but still run down. Has been having contractions for 2 days.did not call. >4 per hour. Is sure she is hydrated, urine is pretty clear. Some of the contractions have been painful. Not coming in a timeable fashion. NSTtoday for this. No other concerns. Baby is active. No bleeding or LOF. ASSESSMENT assessment with Non-stress Test completed on 11/18/2023 at 32.6weeks gestation for indication of contractions heart baseline: 150 bpm, change baseline to 140bpm Variability: Moderate Decelerations: absent Accelerations: present Contractions: None. Minimal uterine irritability noted. NST start time: 1413 NST stop time: 1446 NST strip reviewed, interpreted, and approved by OB provider, EMMA Rothman . NST strip stored in clinic storage file EMMA Rothman * Yari Rob LPN - 11/18/2023 1:53 PM EST 32w6d Denies any issues documented in this encounter Plan of Treatment Upcoming Encounters Date Type Department Care Team (Late st Contact Info) Description 12/02/2023 7:45 AM EST Office Visit Gynecology/Obstetrics [facility] [address] [place] [address] Erin Bahena PA-C [address] [place] [address] 12/14/2023 8:30 AM EST Imaging Radiology [facility] 2nd [facility] [address] [place] [address] 12/14/2023 9:15 AM EST Office [facility] [address] [place] [address] Erin Bahena PA-C [address] [place] [address] 12/22/2023 8:00 AM EST Office Visit Gynecology/Obstetrics [facility] [address] [place] [address] Aggie Alvarenga CRNP [address] [place] [address] 12/28/2023 8:30 AM EST Office Visit Gynecology/Obstetrics [facility] [address] [place] [address] Federica Delgadillo CRNP [address] [place] [address] 01/05/2024 8:00 AM EST Office Visit Gynecology/Obstetrics [facility] [address] [place] [address] Aggie Alvarenga CRNP [address] [place] [address] 01/18/2024 8:30 AM EST Telemedicine Psychiatry, [place] [address] [place] [address] Porsche Markham CRNP [address] [place] [address] Scheduled Orders Name Type Priority Associated Diagnoses Orde r Schedule US PREG FOLLOW-UP EACH FETUS Medical Imaging Routine COVID-19 affecting in third trimester Expected: 12/19/2023 (Approximate), Expires: 12/19/2024 Health Maintenance Due Date Last Done Comments [...] Bipolar disease during in third trimester (HCC) COVID-19 affecting in third trimester [place] contractions Other threatened labor, unspecified as to episode of care documented in this encounter
--- OUTSIDE RECORDS SUMMARY | 2024-01-01 13:35 | External Medical Summary | Summary of Care ---
Author Name Unknown Organization [facility] Address [address] [facility] [place] [address] Phone [phone] Care Team Providers Care Right Of Way Man Name Role Phone Unavailable Primary Care Provider Unavailabl e Encounter Details Date Type Department Care Team (Late st Contact Info) Description 10/28/2023 Telephone [facility] [address] [place] [address] Tim Fontanez MD [address] [place] [address] Allergies No known active allergiesdocumented as of this encounter (statuses as of 10/28/2023) Medications Medication Sig Dispensed Refills Start Date [...] as of this encounter (statuses as of 10/28/2023) Active Problems Problem Noted Date Diagnosed Date [...] as of this encounter (statuses as of 10/28/2023) Resolved Problems Problem Noted Date Diagnosed Date Resolved Date Presence of intrauterine con traceptive device (IUD) 06/24/2017 11/19/2020 documented as of this encounter (statuses as of 10/28/2023) Immunizations Name Administration Dates Next Due DTaP [...] have money to get more. Patient refused [place] Depression Scale Answer Date Recorded [place] Depression Scale Total 8 09/02/2023 The thought [...] encounter Miscellaneous Notes * Telephone Encounter - Carrie Goldman LPN - 10/28/2023 1:39 PM EST Pt is currently 29w6d with an Estimated Date of Delivery: 01/07/24 - Patient called with sharp right side pain, headache and vomiting. Has not kept fluids down since dinner time yesterday. Reviewed with Erin in the office who advised ER eval to r/o gallbladder and to get IVFs for dehydration. Patient agreeable. documented in this encounter Plan of Treatment Upcoming Encounters Date Type Department Care Team (Late st Contact Info) Description 11/04/2023 7:45 AM EST Office Visit Gynecology/Obst[facility]s [facility] [address] [place] [address] Erin Bahena PA-C [address] [place] [address] 11/18/2023 8:30 AM EST Telemedicine Psychiatry, [place] [address] [place], [place] [phone] Porsche Markham CRNP [address] [place] [address] Health Maintenance Due Date Last [...]
--- OUTSIDE RECORDS SUMMARY | 2024-01-01 13:35 | External Medical Summary | Summary of Care ---
Author Name Unknown Organization [facility] Address [address] [facility] [place] [address] Phone [phone] Care Team Providers Care Hot Head Machine Operator Name Role Phone Unavailable Primary Care Provider Unavailabl e Reason for Visit * Reason Comments Return Visit Encounter Details Date Type Department Care Team (Late st Contact Info) Description 11/18/2023 2:00 PM EST Office Visit Gynecology/Obstetric s [facility] [address] [place] [address] Aggie Alvarenga CRNP [address] [place] [address] Supervision of other normal , antepartum*; History of section; Rh negative status during in third trimester; Bipolar disease during in third trimester ([facility]); COVID-19 affecting in third trimester; [place] [...] have money to get more. Patient refused [place] Depression Scale Answer Date Recorded [place] Depression Scale Total 8 09/02/2023 The thought [...] 12/02/2023 7:45 AM EST Office Visit Gynecology/Obstetrics [facility] [address] [place] [address] Erin Bahena PA-C [address] [place] [address] 12/14/2023 8:30 AM EST Imaging Radiology [facility] [address] [facility] [address] [place] [address] 12/14/2023 9:15 AM EST [facility] [address] [place] [address] Erin Bahena PA-C [address] [place] [address] 12/22/2023 8:00 AM EST Office Visit Gynecology/Obstetrics [facility] [address] [place] [address] Aggie Alvarenga CRNP [address] [place] [address] 12/28/2023 8:30 AM EST Office Visit Gynecology/Obstetrics [facility] [address] [place] [address] Federica Delgadillo CRNP [address] [place] [address] 01/05/2024 8:00 AM EST Office Visit Gynecology/Obstetrics [facility] [address] [place] [address] Aggie Alvarenga CRNP [address] [place] [address] 01/18/2024 8:30 AM EST Telemedicine Psychiatry, [place] [address] [place] [address] Porsche Markham CRNP [address] [place] [address] Scheduled Orders Name Type Priority [...] trimester (HCC) COVID-19 affecting in third trimester [place] contractions Other threatened labor, unspecified as to episode of care documented in this encounter
[2024-01-01] MEDS: LURASIDONE HCL 20 MG TAB PO SCH (19:35)
[2024-01-01] MEDS: KETOROLAC 30 MG/ML VIAL IV PRN (19:36)
[2024-01-01] MEDS ORDERED: NON-FORMULARY MEDICATION (Pnv Cmb#95-Ferrous Fumarate-Fa [Prenatal] 28 mg iron- 800 mcg Ta PO SCH (21:00)
[2024-01-02] MEDS: oxyCODONE/ACETAMINOPHEN 5mg/325mg TAB PO PRN (03:03)
[2024-01-02] MEDS: IBUPROFEN 600 MG TAB PO PRN (03:03)
[2024-01-02 09:21] LABS: Basophils # (auto) 0.02 K/uL (0.00-0.20); Basophils % (auto) 0.1 %; Eosinophils # (auto) 0.04 K/uL (0.00-0.50); Eosinophils % (auto) 0.3 %; Hematocrit (blood only) 23.5 % (37.0-47.0); Hemoglobin 7.7 g/dl (12.0-16.0); Immature Granulocytes # (auto) 0.08 K/uL (0.01-0.20); Immature Granulocytes % (auto) 0.5 %; Lymphocytes # (auto) 1.48 K/uL (1.20-3.40); Lymphocytes % (auto) 9.6 %; Mean Corpuscular Hemoglobin 24.5 pg (25.0-34.0); Mean Corpuscular Hgb Conc 32.8 g/dL (32.0-36.0); Mean Corpuscular Volume 74.8 fL (80.0-100.0); Mean Platelet Volume 10.9 fL (9.4-12.4); Monocytes # (auto) 0.77 K/uL (0.11-0.59); Neutrophils # (auto) 12.95 K/uL (1.40-6.50); Neutrophils % (auto) 84.5 %; Platelet Count 173 K/uL (130-400); RDW Coefficient of Variation 15.9 % (11.5-14.5); RDW Standard Deviation 43.2 fL (36.4-46.3); Red Blood Count 3.14 M/uL (4.20-5.40); White Blood Count 15.34 K/ul (4.8-10.8)
[2024-01-02 10:08] LABS: RBC Morphology Unremarkable
--- NOTE | 2024-01-02 10:40 | Obstetrical Progress Note ---
Date of Service January 02, 2024 Assessment & Plan (1) delivery delivered: Pt doing well Hemoglobin this AM is <8 Pt is completely asymptomatic discussed IV iron with pt. she is agreeable continue care Subjective Ambulation: ambulating normally Voiding: no voiding problems Passing Gas:: Yes Diet Tolerance:: clear liquids Lochia:: Small Feeding Type:: breast feeding Review of Systems All systems reviewed & are unremarkable except as noted in HPI & below Physical Exam Constitutional WD/WN, vitals as above well developed and well nourished Eyes PERRL, conjunctivae normal, anicteric sclerae ENMT external ear and nose normal, oropharynx normal Neck trachea midline, no thyromegaly Respiratory normal respiratory effort, lungs clear to auscultation Cardiovascular RRR, no murmur, no edema Chest (Breasts) normal inspection/palpation of breasts Gastrointestinal (Abdomen) normal bowel sounds, soft, nontender, no hepatosplenomegaly Musculoskeletal no cyanosis or clubbing, extremities motor strength 5/5 Skin no rashes, warm and dry + incision (Clean,dry and intact) Neurologic patellar DTR's 2+ bilat, sensation intact Psychiatric A+Ox3, euthymic affect Genitourinary normal external appearance Lymphatic no cervical or axillary lymphadenopathy Results & Data Vital Signs (Past 12 Hours) Vital Signs Temp Pulse Pulse Resp BP BP Pulse Ox 01/02/24 08:05 37.0 C 80 18 130/89 01/02/24 07:21 36.9 C 71 17 120/78 01/02/24 03:05 36.4 C L 79 16 122/78 97 01/02/24 00:10 37 C 85 18 123/83 98 01/01/24 23:45 18 96 O2 Del Method 01/02/24 08:05 01/02/24 07:21 01/02/24 03:05 Room Air 01/02/24 00:10 Room Air 01/01/24 23:45
[2024-01-02] MEDS: IRON SUCROSE 200 MG in 0.9 % SODIUM CHLORIDE 100 ML IV ONE (11:32)
[2024-01-02] MEDS: bisacodyL 5 MG TABEC PO SCH (19:47)
[2024-01-03] MEDS ORDERED: bisacodyL 10 MG SUPP PR PRN (06:53)
[2024-01-03 07:22] LABS: Marijuana Quant, GCMS Urine 3880 ng/mL (<5)
[2024-01-03 07:32] LABS: Hemoglobin 7.7 g/dl (12.0-16.0)
--- NOTE | 2024-01-03 07:48 | Obstetrical Progress Note ---
Date of Service January 03, 2024 Assessment & Plan (1) delivery delivered: POD #2 Pt doing well iron infusion Pt doing well stable vitals Subjective Ambulation: ambulating normally Voiding: no voiding problems Passing Gas:: Yes Diet Tolerance:: clear liquids Lochia:: Small Feeding Type:: breast feeding Review of Systems All systems reviewed & are unremarkable except as noted in HPI & below Physical Exam Constitutional WD/WN, vitals as above well developed and well nourished Eyes PERRL, conjunctivae normal, anicteric sclerae ENMT external ear and nose normal, oropharynx normal Neck trachea midline, no thyromegaly Respiratory normal respiratory effort, lungs clear to auscultation Cardiovascular RRR, no murmur, no edema Chest (Breasts) normal inspection/palpation of breasts Gastrointestinal (Abdomen) normal bowel sounds, soft, nontender, no hepatosplenomegaly Musculoskeletal no cyanosis or clubbing, extremities motor strength 5/5 Skin no rashes, warm and dry + incision (Clean,dry and intact) Neurologic patellar DTR's 2+ bilat, sensation intact Psychiatric A+Ox3, euthymic affect Genitourinary normal external appearance Lymphatic no cervical or axillary lymphadenopathy Results & Data Vital Signs (Past 12 Hours) Vital Signs Temp Pulse Resp BP Pulse Ox O2 Del Method 01/03/24 00:55 37.1 C 90 20 131/82 96 Room Air
--- NOTE | 2024-01-04 23:13 | Discharge Summary ---
Date of Service January 04, 2024 Admission HPI Per Admitting Provider Patient is a 34-year-old 012 at 39 weeks and 1 day gestation who woke up this morning at 2:30 AM with a gush of fluid leakage. She has been leaking clear fluid since then. Her has been complicated by history of prior , breech presentation, failed ECV, for which she was scheduled for repeat on January 06. She has mild irregular contractions which are not painful. She denies vaginal bleeding. Problems of , 1. Prior in 2012, successful in 2014, 2. Breech presentation, failed on December at [facility] in [place] 3. History of bipolar disease, on Lexapro and Latuda, 4. History of PTSD, on medical marijuana, 5. Rh- Discharge Data Procedures Performed Operation Date: 01/01/24 04:45 Actual Procedures p Section in LD for live female child at 0558. - Al Ward MD Hospital Course (1) Footling breech presentation: Patient is a 34-year-old 012 at 39 weeks and 1 day gestation who woke up this morning at 2:30 AM with a gush of fluid leakage. She has been leaking clear fluid since then. Her has been complicated by history of prior , breech presentation, failed ECV, for which she was scheduled for repeat on January 06. She presented to labor and delivery on the morning of January 01 with spontaneous rupture of membranes and persistent footling breech presentation. Her cervix was dilated and she was in early labor. She was admitted and prepared for planned repeat as scheduled before. She was taken to the OR and delivered a viable infant in footling breech presentation without any complications. See dictated op note for details. On postop period Patient was doing well, vital signs stable afebrile urine output was adequate. On postop day #1 patient was doing well, fluids and regular diet, ambulating, physical exam was unremarkable. Her H&H was 7.7/23.7 but she was asymptomatic. She was giving IV iron once and repeat H&H was stable next morning. On postop day #2 patient was doing well, vital signs stable afebrile her physical exam was normal, incision was clean dry intact her bleeding was minimal. She desired to be discharged home on postop day number 2. Discharge instructions were given and prescriptions were written for pain. She is to be seen in office in a week. (2) Spontaneous rupture of amniotic membranes: (3) History of :
== END 2024-01-03 11:30 | disposition home health service (06) | DRG 788 ==
LOC: OPB 03:48 → 4S1 03:54 → 4E2 10:16